=== PATIENT | male | born 1970 | race Hispanic/Latino ===

== ENCOUNTER 2024-01-30 16:02 | Emergency (ER) | payer OTHER ==
[~2024-01-30] VITALS: Ht 165.1 cm; Wt 70.3 kg
[2024-01-30] MEDS: SOLU-MEDROL 125MG VIAL IVP ONE (16:20)
[2024-01-30] MEDS: PREDNISOLONE 15 MG/5 ML SOLN PO STA (16:20)
[2024-01-30 16:42] LABS: BASOPHILS # (AUTO) 0.04 K/uL (0.00-0.20); BASOPHILS % (AUTO) 0.2 % (0.0-5.0); EOSINOPHILS # (AUTO) 0.05 K/uL (0.00-0.70); EOSINOPHILS % (AUTO) 0.3 % (0.0-8.0); HEMATOCRIT 40.9 % (42-54); IMMATURE GRANULOCYTE ABSOLUTE 0.25 K/uL (0-1); LYMPHOCYTES # (AUTO) 2.2 K/uL (1.0-4.8); LYMPHOCYTES % (AUTO) 11.5 % (21.0-51.0); MEAN CORPUSCULAR HEMOGLOBIN 31.9 pg (27.0-33.0); MEAN CORPUSCULAR HGB CONC 35.5 g/dL (32.0-36.0); MEAN CORPUSCULAR VOLUME 90.1 fL (79-99); MONOCYTES # (AUTO) 1.6 K/uL (0.1-1.0); MONOCYTES % (AUTO) 8.4 % (3.0-13.0); NEUTROPHILS # (AUTO) 15.1 K/uL (1.8-7.7); NEUTROPHILS % (AUTO) 78.3 % (40.0-77.0); PLATELET COUNT (AUTO) 397 K/uL (130-400); RED BLOOD CELL COUNT(AUTO) 4.54 MIL/uL (4.50-6.20); RED CELL DISTRIBUTION WIDTH 12.7 % (11.0-15.5); WHITE BLOOD COUNT (AUTO) 19.2 K/uL (4.8-10.8)
[2024-01-30] MEDS: DEXAMETHASONE SOD PHOSPHATE 4 MG/ML 1ML VIAL IM ONE (16:42)
[2024-01-30] MEDS: DEXAMETHASONE SOD PHOSPHATE 4 MG/ML 1ML VIAL ONE (16:43)
[2024-01-30 16:50] LABS: CREATININE 0.9 mg/dL (0.5-1.3); POTASSIUM 3.9 mmol/L (3.5-5.1)
[2024-01-30 16:55] LABS: ALBUMIN 2.9 g/dL (3.5-5.0); TOTAL PROTEIN, SERUM 8.3 g/dL (6.0-8.3)
[2024-01-30 17:14] LABS: SARS-CoV-2, RNA, NAAT NEGATIVE SARS CoV-2 (NEGATIVE)
[2024-01-30 17:17] LABS: INFLUENZA TYPE A Negative For Type A (NEGATIVE); INFLUENZA TYPE B Negative For Type B (NEGATIVE)
[2024-01-30 17:22] LABS: RAPID GROUP A STREP positive (NEGATIVE)
[2024-01-30 17:56] LABS: INR 1.02 (0.85-1.15)
[2024-01-30 17:57] LABS: PARTIAL THROMBOPLASTIN TIME 31.3 SEC (26.3-35.5)
[2024-01-30] MEDS: CEFTRIAXONE 2GM VIAL IVPB STA (19:23)
[2024-01-30] MEDS: CLINDAMYCIN IVPB 600MG/50ML 50 ML IV SCH (19:23)
[2024-01-30] MEDS: 0.9%NACL 1000ML 1,845 ML IV ONE (19:24)
[2024-01-30 20:56] VITALS: BP 153/81; PULSE 76; RESP 16; O2SAT 97
[2024-01-30] MEDS ORDERED: PRED20TA3 PO (21:05)
[2024-01-30] MEDS ORDERED: AMOX400S5 PO (21:05)
[2024-01-30] MEDS: KETOROLAC 30MG VIAL (30MG/ML) IVP ONE (21:21)
== END 2024-01-30 22:25 | disposition home or self-care (01) ==
LOC: EDH 16:02
DX: J35.2 Hypertrophy of adenoids (principal); J02.0 Streptococcal pharyngitis; D69.6 Thrombocytopenia, unspecified; Z79.899 Other long term (current) drug therapy; Z20.822 Contact with and (suspected) exposure to COVID-19
CPT/HCPCS: 99285; 96365; 70490; 96375; 87635; 82550; 84484; 80053; 85025; 85610; 85730; 87040 ×2; 87880; 87804 ×2; 83605; 36415; 96368; 96372; J1100; J7030; J2930; J0696; J1885; J3490

== ENCOUNTER 2025-08-05 19:25 | Inpatient (IN) | payer SELFPAY ==
[~2025-08-05] VITALS: Ht 165.1 cm; Wt 63.5 kg
[2025-08-05] VITALS (7 sets, daily range): BP systolic 126–194; BP diastolic 64–84; PULSE 72–84; RESP 13–22; TEMP 98.4; O2SAT 95
[~2025-08-05 19:25] MED LIST: AMOX400S5 PO; PRED20TA3 PO
[2025-08-05 19:46] LABS: IMMATURE GRANULOCYTE ABSOLUTE 0.24 K/uL (0-1); NUCLEATED RED BLOOD CELLS 0.0 % (0.0-0.19); PLATELET COUNT (AUTO) 341 K/uL (130-400); RED BLOOD CELL COUNT(AUTO) 5.74 MIL/uL (4.50-6.20); RED CELL DISTRIBUTION WIDTH 12.3 % (11.0-15.5); WHITE BLOOD COUNT (AUTO) 21.2 K/uL (4.8-10.8)
[2025-08-05 19:54] LABS: CREATININE 2.6 mg/dL (0.5-1.3); GLOMERULAR FILTR. RATE CALC 28.0 mL/min (>90); GLUCOSE,RANDOM 220.0 mg/dL (70-105); SODIUM SERUM 133.0 mmol/L (136-145); UREA NITROGEN, BLOOD 19.0 mg/dL (7-18)
[2025-08-05] MEDS: NITROGLYCERIN 0.4 MG SL TAB SL PRN (19:56)
[2025-08-05] MEDS: NITROGLYCERIN 0.4 MG SL TAB SL ONE (19:56)
[2025-08-05] MEDS: ASPIRIN 81MG CHEW TAB PO ONE (19:56)
[2025-08-05] MEDS: ASPIRIN 81MG CHEW TAB ONE (19:56)
[2025-08-05 19:59] LABS: CREATINE KINASE, TOTAL 54.0 U/L (21-232)
[2025-08-05] MEDS ORDERED: PRASUGREL HCL 10 MG TABLET PO SCH (20:00)
[2025-08-05 20:02] LABS: INR 1.01 (0.85-1.15)
[2025-08-05] MEDS ORDERED: IOHEXOL 350 MG/ML 100ML INFUS..BTL IV ONE ×2 (20:06→21:02)
[2025-08-05] MEDS ORDERED: LIDOCAINE HCL 400MG/20ML VIAL ONE (20:06)
[2025-08-05] MEDS ORDERED: VERAPAMIL HCL 2.5 MG/ML VIAL ONE (20:06)
[2025-08-05] MEDS ORDERED: HEParin-NS 1,000 UNIT/500 ML 1,000 ML IV ONE (20:07)
--- NOTE | 2025-08-05 20:08 | ERN ---
ED Note History of Present Illness Stated Complaint: C/O DIZZINESS, N X V, LEFT SIDED CP, SOB Chief Complaint: Chest Pain Time Seen by MD: 19:33 Dictation: A 55-year-old male who presented to the emergency room with complaints of dizziness nausea vomitings and chest pain all starting around 3:00 p.m.. He stated that he has never felt this way any time. The chest pain is precordial and he also reports shortness of breath. He denied any radiation to the left arm or jaw. He ate his lunch around 2 in the afternoon. No headache. No a bdominal pain. He does give a history of diaphoresis. Temperature 97.4 pulse 95 respirations 20 blood pressure 147/79 with a pulse oximetry of 98% on room air Patient has never had any routine health care and does not know is comorbidities. Allergies: Coded Allergies: No Known Drug Allergies (Unverified Allergy, Unknown, 01/30/24) Home Meds Active Scripts Amoxicillin (Amoxicillin) 400 Mg/5 Ml Susp.recon, 12 ML PO BID for 10 Days, #250 ML Prov:SHEN SALAZAR 01/30/24 Prednisone (Prednisone) 20 Mg Tablet, 1 TAB PO AD for 6 Days, #14 TAB 0 Refills TAKE 1 TAB BY MOUTH THREE TIMES PER DAY X3 DAYS, THEN TAKE 1 TAB BY MOUTH TWICE A DAY X2 DAYS, THEN TAKE 1 TAB BY MOUTH ONCE A DAY X1 DAY. Prov:SHEN SALAZAR 01/30/24 Past Medical History Past Medical History: No Pertinent History Surgical History: None Social History: ETOH, Negative, Lives with family RN Note Reviewed/Agreed w/PFSH: Yes Review of System Dictation Constitutional: Negative for fever,chills, and weight loss Eyes: Negative for injury, pain,redness, and discharge ENT: Negative for injury,pain or swelling Cardiovascular: Pauses for chest pain, palpitations, and edema Respiratory: Positive for shortness of breath, denied cough, and wheezing, Abdomen/GI: Negative for abdominal pain, diarrhea, and constipation positive for nausea, vomiting, Back: Negative for injury and pain : Negative for injury, bleeding and discharge MS/Extremity: Negative for injury and deformity Skin: Negative for rash, and discoloration Neuro: Negative for headache, weakness, numbness, tingling, and seizure Psych: Negative for suicide ideation, homicidal ideation, and hallucinations Initial Vital Sign VS Vital Signs Date Time Temp Pulse Resp B/P (MAP) Pulse Ox O2 Delivery O2 Flow Rate FiO2 08/05/25 19:28 97.3 95 20 147/79 98 Room Air 08/05/25 19:42 0 21 Physical Exam Dictation General: awake, alert, NAD Head/Face: Normocephalic, atraumatic Eyes: PERRL, EOMI, vision at baseline right eye conjunctival injection more than left eye ENT: oral cavity clear, TMs clear, no signs of infection Neck: Trachea midline, supple, no nuchal rigidity Cardiovascular: RRR, normal S1/S2, No MRGs, no JVD Respiratory: CTAB, no respiratory distress, No rales or wheezes Abdomen: Soft, non-tender, non-distended, normal bowel sounds, no guarding or rebound. Skin: Warm, dry, normal turgor, no rash MS/Extremity: Pulses equal, no cyanosis, neurovascular intact, FROM Neuro: COAx4, GCS 15, strength 5/5, CN 2-12 intact, normal cerebellar exam, normal gait, Psych: Normal behavior, mood, and affect normal Extremities-trace edema without any palpable cords, Homans sign is negative Results (Laboratory/Radiology) Laboratory/Radiology Laboratory Tests Test 08/05/25 19:40 White Blood Count 21.2 K/uL (4.8-10.8) H Red Blood Count 5.74 MIL/uL (4.50-6.20) Hemoglobin 18.3 g/dL (14.0-18.0) H Hematocrit 52.9 % (42-54) Mean Corpuscular Volume 92.2 fL (79-99) Mean Corpuscular Hemoglobin 31.9 pg (27.0-33.0) Mean Corpuscular Hemoglobin Concent 34.6 g/dL (32.0-36.0) Red Cell Distribution Width 12.3 % (11.0-15.5) Platelet Count 341 K/uL (130-400) Mean Platelet Volume 9.1 fL (7.5-10.5) Immature Granulocyte % (Auto) 1.1 % (0-1) H Neutrophils (%) (Auto) 84.9 % (40.0-77.0) H Lymphocytes (%) (Auto) 6.4 % (21.0-51.0) L Monocytes (%) (Auto) 7.1 % (3.0-13.0) Eosinophils (%) (Auto) 0.1 % (0.0-8.0) Basophils (%) (Auto) 0.4 % (0.0-5.0) Neutrophils # (Auto) 18.0 K/uL (1.8-7.7) H Lymphocytes # (Auto) 1.4 K/uL (1.0-4.8) Monocytes # (Auto) 1.5 K/uL (0.1-1.0) H Eosinophils # (Auto) 0.03 K/uL (0.00-0.70) Basophils # (Auto) 0.08 K/uL (0.00-0.20) Absolute Immature Granulocyte (auto 0.24 K/uL (0-1) Nucleated Red Blood Cells 0.0 % (0.0-0.19) White Cell Morphology Comment See comments Prothrombin Time 10.7 SEC (9.6-11.6) Prothromb Time International Ratio 1.01 (0.85-1.15) Activated Partial Thromboplast Time 23.6 SEC (26.3-35.5) L Sodium Level 133 mmol/L (136-145) L Potassium Level 4.4 mmol/L (3.5-5.1) Chloride Level 96 mmol/L (101-111) L Carbon Dioxide Level 24 mmol/L (21-32) Blood Urea Nitrogen 19 mg/dL (7-18) H Creatinine 2.6 mg/dL (0.5-1.3) H Glomerular Filtration Rate Calc 28 mL/min (>90) Random Glucose 220 mg/dL (70-105) H Total Calcium 10.6 mg/dL (8.5-10.1) H Total Creatine Kinase 54 U/L (21-232) # Troponin I High Sensitivity 50 ng/L (4-75) Labs Reviewed?: Yes EKG Comment: Twelve lead EKG done on 08/05/2025 at 7:30 p.m. shows a heart rate of 86, FL interval 172, QRS 97, QT/QTC 370/444. Impression normal sinus rhythm with a acute ST-T elevations in the anterolateral leads. ST segment elevation is also noted in the inferior leads with Q-waves in the lead 3 and small Q-waves in the AVF. EKG rhythm strip shows ST-T elevations and sinus rhythm. Interpreted by ER MD Dr. Avendaño X-RAY Comment: REASON: CHEST PAIN ORDERING PHYSICIAN: LINH AVENDAÑO MD PROCEDURE: CXR1VW - CHEST 1VW EXAM: CR Chest, single view. CLINICAL HISTORY: Chest pain. COMPARISON: None. FINDINGS: The lungs show no infiltrate or other acute findings. No pleural effusion or pneumothorax. The cardiomediastinal silhouette is within normal limits. No acute osseous abnormality. IMPRESSION: No acute cardiopulmonary pathology is evident. /[place] DICTATED BY: MARSHAL ARRIETA Jr., MD DATE: 08/05/252228 ELECTRONICALLY SIGNED BY: MARSHAL ARRIETA Jr., MD DATE: 08/05/252228 ED Course ED Course Orders Procedure Category Date Status Time Vital Signs Per CPOE 08/05/25 Transmitted Routine 19:37 Chest 1vw RAD 08/05/25 Resulted 19:37 12 Lead Ekg Tracing- EKG 08/05/25 Complete Technical 19:37 Oxygen By Nc/Pulse Ox CPOE 08/05/25 Transmitted 19:37 Maintain Iv CPOE 08/05/25 Transmitted 19:37 Iv Insertion CPOE 08/05/25 Transmitted 19:37 Cardiac Monitoring CPOE 08/05/25 Transmitted 19:37 Pulse Oximetry With CPOE 08/05/25 Transmitted Vs And Prn 19:37 Cbc With Differential LAB 08/05/25 Complete 19:37 Activity: Br W/Brp CPOE 08/05/25 Transmitted With Assist 19:37 Creatine Kinase, Total LAB 08/05/25 Complete 19:37 Troponin I High LAB 08/05/25 Complete Sensitivity 19:37 Urinalysis Profile LAB 08/05/25 Logged 19:37 Basic Metabolic Panel LAB 08/05/25 Complete 19:37 Nitroglycerin 0.4mg PHA 08/05/25 Complete Sl Tab (Nitrostat) 19:39 Aspirin 81mg Chew Tab PHA 08/05/25 Complete (Aspirin 81mg Chew 19:39 Prasugrel 10mg PHA 08/05/25 Complete (Effient 10mg) 20:00 Nitroglycerin 0.4mg PHA 08/05/25 In Process Sl Tab (Nitrostat) 20:00 Aspirin 81mg Chew Tab PHA 08/05/25 Complete (Aspirin 81mg Chew 20:00 Lace Burn Out Tender Procedure CATH 08/05/25 In Process Request Ticagrelor (Brilinta) PHA 08/05/25 Complete 20:00 Initiate Heparin TYLOR 08/05/25 In Process Treatment Pro 19:45 Heparin 5,000 Unit PHA 08/05/25 In Process Vial (Heparin 5,000 U 20:30 Heparin 25,000 PHA 08/05/25 In Process Units/250ml D5w 20:30 Heparin Protocol CPOE 08/05/25 Transmitted Monitoring 19:45 Pt And Ptt LAB 08/05/25 Complete 19:47 Type And Screen BBK 08/05/25 Complete 19:57 Lidocaine Hcl PHA 08/05/25 Complete 400mg/20ml (Lidocaine 20:06 Iohexol (Omnipaque) PHA 08/05/25 Complete 20:06 Verapamil Hcl PHA 08/05/25 Complete (Calan/Isoptin) 20:06 Heparin 10,000 PHA 08/05/25 Complete Unit/10ml (Heparin 20:07 Heparin-Ns 1,000 PHA 08/05/25 Complete Unit/500 Ml 20:07 Nitroglycerin 50mg PHA 08/05/25 Complete Vial (Tridil 50mg/10m 20:14 Fentanyl Citrate Pf PHA 08/05/25 Complete 0.05 Mg/Ml (Fentanyl 20:22 Midazolam Hcl (Versed) PHA 08/05/25 Complete 20:22 Eptifibatide PHA 08/05/25 Complete 75mg/100ml Bottle 20:31 Eptifibatide PHA 08/05/25 Complete (Integrilin) 20:31 Eptifibatide PHA 08/05/25 Complete (Integrilin) 20:44 Nicardipine 25mg Inj PHA 08/05/25 Complete (Cardene 25mg Inj) 20:52 Heparin-Ns 1,000 PHA 08/05/25 Complete Unit/500 Ml 20:54 Iohexol (Omnipaque) PHA 08/05/25 Complete 21:02 Activities Post Cath CPOE 08/05/25 Transmitted 21:19 Lace Burn Out Tender Vital Signs CPOE 08/05/25 Transmitted 21:19 Intake/Output Lace Burn Out Tender CPOE 08/05/25 Transmitted 21:19 Physician CPOE 08/05/25 Transmitted Notification Cathlab 21:19 Eptifibatide PHA 08/05/25 Pending 75mg/100ml Bottle 21:30 0.9%Nacl 1000ml (Ns PHA 08/05/25 In Process 1000ml) 21:30 Heart Healthy Diet DIET 08/06/25 Transmitted Breakfast Admit Orders ADM 08/05/25 Transmitted 21:19 Amlodipine 5 Mg Tab PHA 08/06/25 In Process (Norvasc 5mg Tab) 09:00 Aspirin 81mg Chew Tab PHA 08/06/25 In Process (Aspirin 81mg Chew 09:00 Ticagrelor (Brilinta) PHA 08/06/25 Pending 09:00 Initiate Hypoglycemia TYLOR 08/05/25 In Process Protocol 21:19 Dextrose 50%-Water PHA 08/05/25 In Process (D50w) 21:30 Glucagon 1mg Kit PHA 08/05/25 In Process (Glucagon 1mg Kit) 21:30 Initiate TYLOR 08/05/25 In Process Hyperglycemia Protoco 21:19 Radial Band CPOE 08/05/25 Transmitted Remvl-Intervention 21:19 Vital Signs Date Time Temp Pulse Resp B/P (MAP) Pulse Ox O2 Delivery O2 Flow Rate FiO2 08/05/25 19:42 98.1 94 18 145/88 97 Room Air* 0 21 08/05/25 19:28 97.3 95 20 147/79 98 Room Air We will perform diagnostic labs, advanced imaging and administer medications according to the patient's complaint. Once the results are available, will review and personally interpreted the labs to rule out any acute life- threatening emergency the trach require immediate intervention and treatment. I will then re-evaluate the patient after treatment and diagnostic exams have return to determine whether the patient requires any further testing, can safely be discharged home or need further admission to hospital for additional treatment and evaluation. Once patient goes to the supervisor labor gang, after procedure we will be directly admitted to the intensive care unit. supervisor sawmill to coordinate the admission to the team HEART Score Response (Comments) Value History: High suspicion (+2) 2 EKG: Significant ST depression 2 Age: 45-65yrs (+1) 1 Risk Factors: No known risk factors (0) 0 Initial Troponin: 1-3x Normal Limit (+1) 1 HEART Score Risk: High Risk for MACE (7-10) Total 6 Medical Decision Making MDM Differential diagnosis: Acute STEMI, takotsubo, pericarditis, non-STEMI, GI pathology, coronary spasm A 55-year-old male who presented to the emergency room with complaints of dizziness nausea vomitings and chest pain all starting around 3:00 p.m.. He stated that he has never felt this way any time. The chest pain is precordial and he also reports shortness of breath. He denied any radiation to the left arm or jaw. He ate his lunch around 2 in the afternoon. No headache. No abdominal pain. He does give diaphoresis. Temperature 97.4 pulse 95 respirations 20 blood pressure 147/79 with a pulse oximetry of 98% on room air Patient has never had any routine health care and does not know is comorbidit ies. Twelve lead EKG done on 08/05/2025 at 7:[address]-T elevations in the anterolateral leads with a small inferior cues and SD elevations also in inferior leads reciprocal changes. Acute STEMI alert activated Patient already received aspirin 324 mg, nitro sublingual 0.4. 7:[address] Rogelio hayes and shared the EKG. He concurs and indicat ed to me that he is on his way. labor and delivery registered nurse has already been activated Patient also received Brilinta 180 mg. Heparin drip initiated. Patient to go to supervisor labor gang soon 8:00 p.m. labs reviewed CBC shows a white count of 21.2 hemoglobin 18.3 platelets 341. BNP 7 is significant for a sodium of 133 chloride 96 BUN and creatinine are 19 and 2.6 with a glucose of 227. LFTs are also abnormal. Troponins pending Rationale: Tests considered and ordered secondary to shared decision making include: labs, ECG and radiology Previous outside records reviewed: Old ER visits. Risk of complication and/or morbidity or mortality of patient management: None Medications-Per medication reconciliation Need for hospitalization: Patient does meet criteria for hospitalization. Need for emergency major/minor surgery: No There are no social concerns with this patient. Prescription drug management Prescriptions will include symptomatic care Patient's prior external medical records from other ER visits were reviewed by me as indicated. Prior testing and results from previous visits were reviewed. Prior tests were taken into account with medical decision making and resource utilization, independent historian/historians were used to obtain complete medical history. I independently interpreted the test that were performed, results were reviewed by me and considered findings on radiology if ordered. Medical management and examination interpretation discussions were had by me with other qualified healthcare professionals as indicated for the patient's care. Problem List Problem List: (1) Acute ST elevation myocardial infarction (STEMI) (2) Leukocytosis (3) Nausea & vomiting (4) Acute kidney injury (5) Hyperglycemia Critical Care Note Comment(s) Life-threatening illness; acute STEMI, leukocytosis, acute kidney injury Risk of morbidity mortality-high Complexity of medical decision making-high (X) high probability of sudden clinically significant deterioration in the patient's condition required the highest level of my preparedness to intervene urgently. I provided critical care services requiring my direct and personal management as noted below; (x) chart data review (x) reviewing nurse's notes and/charts (x) documentation time (x) consultation collaboration on findings and therapy options (x) medication orders and management (x) re-evaluations (x) care, transfer of care, and discharge plans (x) ordering and interpreting studies (x) ordering and reviewing labs (x) obtaining necessary history from family, EMS, skilled nursing, private MD, surrogate decision makers because patient was unable to give history due to limitations in the mental status (x) aggregate critical care time was ( 40 ) minutes. This includes only time during which I was engaged in work directly related to the patient's care as described above whether at the bedside or elsewhere in the ER while the patient was critical. My time did not include minutes spent treating any other patients simultaneously or on activities that did not directly contribute to the patient's treatment. It did not include time spent performing other reported procedures or services of residents if any. Linh NEWCP DX & DISP Disposition: Inpatient Departure Impression: Primary Impression: Acute ST elevation myocardial infarction (STEMI) Additional Impressions: Leukocytosis, Nausea & vomiting, Acute kidney injury, Hyperglycemia Condition: Stable Additional Instructions: Patient was informed of all the diagnostic labs and procedures conducted in the emergency room today and demonstrated understanding of the results. I personally reviewed and interpreted all the diagnostic exams performed in the ER today. The patient will be admitted to the hospital for further treatment and evaluation. Disposition-admit to facility Condition-stable/guarded Course-uncertain at this time Pain status-decreased Assessment-exam unchanged Admission Certification- I certify that the patients status is appropriate and is based on my best clinical judgment and the patient's condition as documented in the medical records Referrals: SELF,REFERRAL (PCP) LINH AVENDAÑO MD Aug 05, 2025 20:08
--- NOTE | 2025-08-05 20:11 | NUR ---
lab rn team here. Dr Oliveira at bedside
[2025-08-05] MEDS ORDERED: NITROGLYCERIN 50MG VIAL ONE (20:14)
--- NOTE | 2025-08-05 20:14 | EKG ---
[facility] Test Date: 2025-08-05 Test Time: 19:30:43 Pat Name: DO LUNA Department: [facility] Room: 216 Gender: M Log Rafter: [id number] : 1970 Requested By: REX CASANOVA Order Number: [id number] Reading MD: Sophie Reina Measurements Intervals [place] Rate: 86 P: 65 VT: 172 QRS: 70 QRSD: 97 T: 60 QT: 370 QTc: 444 Interpretive Statements Sinus rhythm Anterolateral infarct, acute No previous ECG available for comparison Electronically Signed On 08-07-2025 08:37:30 CDT by Sophie Reina Please click the below link to view image of tracing.
--- NOTE | 2025-08-05 20:14 | NUR ---
PATIENT TAKEN TO AEROBICS INSTRUCTOR
[2025-08-05] MEDS ORDERED: MIDAZOLAM HCL 1 MG/ML 2ML VIAL ONE (20:22)
--- NOTE | 2025-08-05 20:25 | CONS ---
[facility] CARDIOLOGY CONSULTATION NOTE Date Patient Seen: Aug 05, 2025 Time of Visit: 20:19 Reason for Consultation: [ Acute STEMI] History of Present Illness: [ 55-year-old male with a past medical history of drug abuse, hypertension, hyperlipidemia who presented to [facility] endorsing acute onset of epigastric burning radiating to his left chest accompanied by na usea and vomiting. Patient stated his symptoms subsided after nausea vomiting and initiated around noon today. Patient states upon arrival to his house he began endorsing left-sided chest pressure radiating to his left arm accompanied by nausea and vomiting. Given his progressive symptoms he presented to [facility] where he was given sublingual nitro with improvement of his symptoms. His presenting ECG revealed inferior and anterolateral ST elevations and code STEMI was activated. Patient was started on ACS protocol including loading doses of Brilinta, IV heparin bolus and infusion, high-intensity statin therapy and was transferred to laboratory phlebotomist for urgent coronary angiogram with possible PCI. On evaluation in the ER patient was hemodynamically stable in no acute distress denying any further symptoms. There were no telemetry events and following informed consent the patient was taken to the laboratory phlebotomist. Family is present at bedside and all risk benefits were explained in great detail. Patient verbalized understanding and agreeable with plan of care] Past Medical History: [Refer to HPI ] Past Surgical History: [ Refer to chart] Family History: [Noncontributory ] Social History: [ Refer to chart] Habits: [Never] smoker. [Occasional] alcohol consumption. [Cocaine] illicit drug use Review of Systems: Review of 12 point systems is negative except per HPI Physical Examination: GENERAL: [No acute distress.] HEAD: [Normal with no signs of head trauma.] EYES: [PERRLA, EOMI, conjunctiva and sclera normal.] ENT: [Hearing grossly intact, normal oropharynx.] NECK: [Supple without JVD. There is no tenderness, lymphadenopathy, or masses. No thyromegaly. Normal carotid upstrokes without bruits.] LUNGS: [Clear breath sounds bilaterally. . No wheezes, or rhonchi.] HEART: [Normal rate and rhythm. Normal S1 and S2 without mumurs, gallop or rub.] VASC: [Peripheral pulses +2 bilaterally.] ABD: [Bowel sounds normal, soft, nontender, no masses, no organomegaly. No audible bruits.] : [Not examined] LYMPH: [No lymphadenopathy noted.] EXT: [No clubbing, cyanosis or edema.] SKIN: [No rashes or lesions noted.] NEURO: [Awake, alert, and oriented x3. No focal sensory or strength deficits noted.] Vital Signs (last 8hr) Date Time Temp Pulse Resp B/P (MAP) Pulse Ox O2 Delivery O2 Flow Rate FiO2 08/05/25 19:42 98.1 94 18 145/88 97 Room Air* 0 21 08/05/25 19:28 97.3 95 20 147/79 98 Room Air Laboratory: [ ] Hematology Labs: Test 08/05/25 19:40 Range/Units White Blood Count 21.2 H 4.8-10.8 K/uL Red Blood Count 5.74 4.50-6.20 MIL/uL Hemoglobin 18.3 H 14.0-18.0 g/dL Hematocrit 52.9 42-54 % Mean Corpuscular Volume 92.2 79-99 fL Mean Corpuscular Hemoglobin 31.9 27.0-33.0 pg Mean Corpuscular Hemoglobin Concent 34.6 32.0-36.0 g/dL Red Cell Distribution Width 12.3 11.0-15.5 % Platelet Count 341 130-400 K/uL Mean Platelet Volume 9.1 7.5-10.5 fL Immature Granulocyte % (Auto) 1.1 H 0-1 % Neutrophils (%) (Auto) 84.9 H 40.0-77.0 % Lymphocytes (%) (Auto) 6.4 L 21.0-51.0 % Monocytes (%) (Auto) 7.1 3.0-13.0 % Eosinophils (%) (Auto) 0.1 0.0-8.0 % Basophils (%) (Auto) 0.4 0.0-5.0 % Neutrophils # (Auto) 18.0 H 1.8-7.7 K/uL Lymphocytes # (Auto) 1.4 1.0-4.8 K/uL Monocytes # (Auto) 1.5 H 0.1-1.0 K/uL Eosinophils # (Auto) 0.03 0.00-0.70 K/uL Basophils # (Auto) 0.08 0.00-0.20 K/uL Absolute Immature Granulocyte (auto 0.24 0-1 K/uL Nucleated Red Blood Cells 0.0 0.0-0.19 % White Cell Morphology Comment See comments Chemistry Labs: Test 08/05/25 19:40 Range/Units Sodium Level 133 L 136-145 mmol/L Potassium Level 4.4 3.5-5.1 mmol/L Chloride Level 96 L 101-111 mmol/L Carbon Dioxide Level 24 21-32 mmol/L Blood Urea Nitrogen 19 H 7-18 mg/dL Creatinine 2.6 H 0.5-1.3 mg/dL Glomerular Filtration Rate Calc 28 >90 mL/min Random Glucose 220 H 70-105 mg/dL Total Calcium 10.6 H 8.5-10.1 mg/dL Total Creatine Kinase 54 # 21-232 U/L Troponin I High Sensitivity 50 4-75 ng/L Coagulation Labs: Test 08/05/25 19:40 Range/Units Prothrombin Time 10.7 9.6-11.6 SEC Prothromb Time International Ratio 1.01 0.85-1.15 Activated Partial Thromboplast Time 23.6 L 26.3-35.5 SEC Diagnostics / Radiology: [Copy/Paste Echos/Imaging Report here] Assessment: [Acute STEMI Hypertension Hyperlipidemia History of drug abuse ] Plan: [# Acute STEMI: Patient presenting with epigastric burning associated with nausea and vomiting while at work which initiated around 12:00 p.m. today Following emesis his symptoms resolve later that afternoon he began endorsing left-sided radiating chest pressure He presented to [facility] worse presenting ECG revealed inferior and anterolateral ST elevations Patient was given IV heparin bolus and infusion along with Brilinta 180 mg, aspirin 324, and Lipitor 40 mg q.h.s. On evaluation the bedside patient was hemodynamically stable stating his symptoms had resolved Following informed consent patient was taken to the laboratory phlebotomist emergently for coronary angiogram with possible PCI Please order formal 2D echocardiogram to assess systolic and valvular function The patient required 12 months of dual antiplatelet therapy in addition to high- intensity statin therapy and beta-maricarmen Please keep patient on telemetry. Monitor/replace electrolytes as needed Former recommendations pending 2D echocardiogram and coronary angiogram ] Thank you for this consult. Cardiology continued to follow along PIPER GODINEZ MD Aug 05, 2025 20:25
[2025-08-05] MEDS ORDERED: EPTIFIBATIDE 75MG/100ML BOTTLE 100 ML IV ONE (20:31)
[2025-08-05] MEDS ORDERED: EPTIFIBATIDE 2 MG/ML 10 ML VIAL IVP ONE ×2 (20:31→20:44)
[2025-08-05] MEDS ORDERED: HEParin-NS 1,000 UNIT/500 ML 500 ML IV ONE (20:54)
[2025-08-05] MEDS ORDERED: DEXTROSE 50%-WATER 50 ML DISP.SYRIN IV PRN (21:30)
[2025-08-05] MEDS: 0.9%NACL 1000ML 1,000 ML IV SCH (21:30)
[2025-08-05] MEDS ORDERED: GLUCAGON 1MG KIT 1 MG ML IM PRN (21:30)
--- NOTE | 2025-08-05 21:30 | HMCIMG ---
EXAM: CR Chest, single view. CLINICAL HISTORY: Chest pain. COMPARISON: None. FINDINGS: The lungs show no infiltrate or other acute findings. No pleural effusion or pneumothorax. The cardiomediastinal silhouette is within normal limits. No acute osseous abnormality. IMPRESSION: No acute cardiopulmonary pathology is evident. /[place]
--- NOTE | 2025-08-05 21:38 | PRN ---
PROCEDURE REPORT DATE OF PROCEDURE: Aug 05, 2025 SAILING MASTER: [ Piper hayes MD] PROCEDURE PERFORMED: Conscious sedation Ultrasound guided right radial artery access Selective left coronary artery angiogram Selective right coronary artery angiogram Left heart catheterization IVUS of the LAD and left main Status post successful IVUS guided aspiration thrombectomy of the distal LAD (penumbra catheter) with removal of thrombus burden TR band 13 fawn over right radial artery INDICATION: Abnormal stress test DESCRIPTION OF PROCEDURE: After informed consent was obtained, the patient was prepped and draped in the usual sterile fashion. A 6 Bengali arterial sheath was inserted in the right radial artery using ultrasound guidance with first pass wall puncture. The arterial sheath was aspirated and flushed. A 6 Bengali JL 3.5 was then advanced to the ascending aorta over an exchange length J-tip guidewire, was aspirated and flushed, and was used for selective coronary angiograms in multiple obliquities. A JR-4 was advanced in a similar fashion to the ascending aorta over the J-tipped guidewire and was used for selective right coronary angiograms in multiple oblique views with findings as outlined below. The JR-4 catheter advanced into the LV and pressures were obtained with a pull-back across the aortic valve. Following review of the angiographic images decision was made to intervene on patient's distal thrombotic stenosis. [place] [address] units of IV heparin loading doses of ticagrelor along with IV heparin infusion. Given his significant thrombotic burden we initiated double bolus and infusion of Integrilin. We then advanced a six Bengali XB three guide catheter over the wire which was used to select engage the left main coronary artery. We then advanced a Prowater down to the distal LAD and this was used to daughter the distal apical thrombotic burden. Given the distal thrombotic burden we proceeded with aspiration thrombectomy rather than DATA SUPPORT SPECIALIST to prevent further embo lization, moreover there appeared to be 30-40% thrombotic plaque in the ostial LAD. We advanced a penumbra catheter over the wire and became several antegrade and retrograde passes with removal of significant clot burden the distal and apical LAD as well as ostial LAD. We performed IVUS imaging to further delineate lesion morphology and characteristics. We noted distal thrombotic burden and a 30-40% thrombotic plaque in the ostial LAD. At this time we noted improvement of his ST elevations we provided a total of 400 mcg of nicardipine intracoronary along with a bolus of Integrilin intracoronary. Following review of the final angiographic images and improvement of ST-elevation decision was made to terminate the procedure and provide IV Integrilin infusion over the next 16-18 hours. At this time all wires and catheters removed from the body and a A TR band was placed over right radial artery. Patient tolerated procedure well with no postprocedural complication was transferred to CCU in stable condition FLUOROSCOPY TIME: 9.8 min LEFT HEART HEMODYNAMICS: LVEDP 3 mm Hg and no gradient Ao CORONARY ANGIOGRAM: LEFT MAIN: Patent and 0% stenosis. Gives rise to LCx and LAD. LEFT ANTERIOR DESCENDING: Large vessel giving rise to two Diagonal branches. There is 30-40% ostial thombotic plaque (by IVUS) and 100% distal-apical thrombotic occlusion. Diagonal patent LEFT CIRCUMFLEX: Large and gives rise to two OM branches. Luminal irregularities RIGHT CORONARY ARTERY: Large, dominant vessel giving rise to PDA and PL branches. Luminal irregularities HEMOSTASIS: TR band 12 fawn over right radial artery INTERVENTIONS: Status post successful IVUS guided aspiration thrombectomy of the distal LAD (penumbra catheter) with removal of thrombus burden COMPLICATIONS: None FINDINGS: Normal coronary anatomy and 100% distal thrombotic occlusion of the LAD status post successful aspiration thrombectomy ESTIMATED BLOOD LOSS: 5 cc RECOMMENDATIONS/INSTRUCTIONS: Aggressive risk factor modification. Patient required 12 months of dual antiplatelet therapy (aspirin 81 mg daily/ticagrelor 90 mg b.i.d.) in addition to high-intensity statin therapy We will defer the use of beta-blockers given recent cocaine use in initiate calcium channel blockers Please perform 2D echocardiogram to assess systolic and valvular function Radial arm precautions and postprocedural IV resuscitation with fluids We will continue IV Integrilin infusion at a constant rate for the next 16-18 hours CONTRAST DELIVERED TO PATIENT (mL): 200cc PIPER Gilbert MD, MD Aug 05, 2025 21:38
--- NOTE | 2025-08-05 22:31 | HP ---
History of Present Illness Reason for Visit: chest pain History of Present Illness Mr. Valdes is a 65-year-old male that was seen and examined today on 08/05/2025. Patient is a good historian of personal health. Patient's , Melba Valdes is at bedside 55-year-old male with a past medical history of drug abuse, hypertension, hyperlipidemia who presented to [facility] endorsing acute onset of epigastric burning radiating to his left chest accompanied by nausea and vomiting. Patient stated his symptoms subsided after nausea vomiting and initiated around noon today. Patient states upon arrival to his house he began endorsing left-sided chest pressure radiating to his left arm accompanied by nausea and vomiting. Given his progressive symptoms he presented to [facility] ER where he was given sublingual nitro with improvement of his symptoms. His presenting ECG revealed inferior and anterolateral ST elevations and code STEMI was activated. Patient was started on ACS protocol including loading doses of Brilinta, IV heparin bolus and infusion, high-intensity statin therapy and was transferred to laboratory machinist for urgent coronary angiogram with possible PCI. On evaluation in the ER patient was hemodynamically stable in no acute distress denying any further symptoms. There were no telemetry events and following informed consent the patient was taken to the laboratory machinist. Family is present at bedside and all risk benefits were explained in great detail. Patient verbalized understanding and agreeable with plan of care] Past Medical History Patient History: Asthma FATHER Carcinomas FATHER, Onset:40's - 50 Cardiovascular disease MOTHER, Onset:50's - 60 ADDITIONAL PAST MEDICAL HISTORY: [Denies, vision problems left eye] SOCIAL HISTORY: [Negative for smoking. Patient drinks one beer that is 24 oz each every other day. Patient denies drug use. 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 Patient is typically independent of all his ADLs. Patient denies difficulty pain is bills.] SURGICAL HISTORY: [Denies] Review of Systems General: No Fever, No Chills, No Night Sweats, No Fatigue, No Malaise, No Appetite, No Other HEENT: No Head Aches, No Visual Changes, No Eye Pain, No Ear Pain, No Dysphasia, No Sinus Congestion, No Post Nasal Drip, No Sore Throat, No Other Pulmonary: No Dyspnea, No Cough, No Pleuritic Chest Pain, No Other Cardiovascular: Chest Pain; No: Palpitations, Orthopnea, Paroxysmal Noc. Dyspnea, Edema, Lt Headedness, Other Gastrointestinal: No: Nausea, Vomiting, Abdominal Pain, Diarrhea, Constipation, Melena, Hematochezia, Other Genitourinary: No Dysuria, No Frequency, No Incontinence, No Hematuria, No Retention, No Other Musculoskeletal: No: other, neck pain, shoulder pain, arm pain, back pain, hand pain, leg pain, foot pain Skin: No Urticaria, No Rash, No Other Neurological: No: Weakness, Numbness, Incoordination, Change in speech, Confusion, Seizures, Other Allergies: Coded Allergies: No Known Drug Allergies (Unverified Allergy, Unknown, 01/30/24) Scheduled Amoxicillin (Amoxicillin), 12 ML PO BID Prednisone (Prednisone), 1 TAB PO AD Exam Vital Signs Vital Signs Date Time Temp Pulse Resp B/P (MAP) Pulse Ox O2 Delivery O2 Flow Rate FiO2 08/05/25 19:42 98.1 94 18 145/88 97 Room Air* 0 21 General Appearance: Alert, Oriented X3, Cooperative, moderate distress HEENT: Atraumatic, EOMI Respiratory: Clear to auscultation, Normal air movement, NL respiratory effort Cardiovascular: Normal S1, Normal S2, Other Abdominal: Normal bowel sounds, Soft, No tenderness Extremities: No edema Skin: No significant lesion Neuro: Normal speech, Strength at 5/5 X4 ext, Sensation intact, Cranial nerves 3-12 NL Psych/Mental Status: Mental status NL, Mood NL, Thoughts/Content NL Assessment/Plan ASSESSMENT: [ STEMI, POA Status post successful IVUS guided aspiration thrombectomy of the distal LAD (penumbra catheter) with the removal of thrombus burden, on 08/05/25 PLAN: [ Admit patient to ICU as inpatient status. Place patient on telemetry monitoring. Patient is being followed by cardiology service, Dr. Rogelio hayes Status post successful IVUS guided aspiration thrombectomy of the distal LAD (penumbra catheter) with the removal of thrombus burden. Patient is status post left coronary artery angiogram, right coronary artery angiogram, left heart catheterization, IVUS of the LAD and left main. Heart healthy diet heparin drip has been discontinued NS at 100 mL/HR Amlodipine 5 mg daily Patient received aspirin 324 mg by mouth times 1 Aspirin 81 mg by mouth daily Nitroglycerin sublingual 0.4 mg as needed for chest pain every 5 minutes, max 3 doses, hold for systolic blood pressure less than 100 mmHg. Patient received ticagrelor 180 mg by mouth times 1 Continue ticagrelor 90 mg by mouth twice daily Supplemental oxygen to maintain O2 saturation greater 92%. GI prophylaxis, famotidine DVT prophylaxis, Devin's and SCDs anticoagulation per Cardiology Service ADVANCED CARE PLANNING 1. Which of the following were discussed? Hospice Care - Yes Therapeutic options - yes Advance Directives - Yes - patient states he does not have any advance directives in place at this time, however his , Melba can make decisions for him if he becomes unable. Other discussions - patient wishes to remain a full code at this time 2. Discussed with who? Patient 3. Voluntary nature of this service was explained to the patient? Yes 4. Amount of time spent - ___16 minutes____ 5. Reviewed by Physician? (if this service was performed by NPP) Yes This document was generated in part using voice recognition software, occasional wrong word or sound alike substitutions may have occurred due to the inherent limitations of voice recognition software. Read the chart carefully and recognize using context, where the substitutions have occurred. Although every effort was made to edit the content, informatics application analyst and typing errors may occur ATTESTATION BY PHYSICIAN I have seen and examined the patient. I reviewed the documentation, medical decision making, and treatment plan as noted by the mid-level provider above. I agree with the findings and plan of care. JUNI POLANCO [facility] Aug 05, 2025 22:31
[2025-08-05 23:00] LABS: INFLUENZA TYPE A Negative For Type A (NEGATIVE); INFLUENZA TYPE B Negative For Type B (NEGATIVE)
[2025-08-06] VITALS (42 sets, daily range): BP systolic 113–159; BP diastolic 59–98; PULSE 63–84; RESP 6–73; TEMP 97.8–98.7; O2SAT 95–98
[2025-08-06] MEDS ORDERED: MAGNESIUM 2GM PREMIX 50ML 50 ML IV PRN
[2025-08-06] MEDS ORDERED: PoTASSium chl 10% ELIXIR 20MEQ 20 MEQ/15 ML UDCUP PO PRN
[2025-08-06 05:20] LABS: IMMATURE GRANULOCYTE ABSOLUTE 0.10 K/uL (0-1); NUCLEATED RED BLOOD CELLS 0.0 % (0.0-0.19); PLATELET COUNT (AUTO) 298 K/uL (130-400); RED BLOOD CELL COUNT(AUTO) 4.80 MIL/uL (4.50-6.20); RED CELL DISTRIBUTION WIDTH 12.5 % (11.0-15.5); WHITE BLOOD COUNT (AUTO) 14.7 K/uL (4.8-10.8)
[2025-08-06 05:49] LABS: CREATININE 1.7 mg/dL (0.5-1.3); GLOMERULAR FILTR. RATE CALC 46.0 mL/min (>90); GLUCOSE,RANDOM 126.0 mg/dL (70-105); PHOSPHORUS 5.6 mg/dL (2.5-4.9); SODIUM SERUM 134.0 mmol/L (136-145); UREA NITROGEN, BLOOD 28.0 mg/dL (7-18)
[2025-08-06] MEDS: EPTIFIBATIDE 75MG/100ML BOTTLE 100 ML IV SCH (05:57)
[2025-08-06] MEDS: amLODIPine 5 MG TAB PO SCH (08:07)
[2025-08-06] MEDS: FAMOTIDINE 20MG TAB PO SCH (08:07)
[2025-08-06] MEDS: ASPIRIN 81MG CHEW TAB PO SCH (08:07)
[2025-08-06 08:47] LABS: LDL DIRECT 95 mg/dL (0-99)
--- NOTE | 2025-08-06 09:27 | EKG ---
[facility] Test Date: 2025-08-06 Test Time: 07:58:23 Pat Name: DO LUNA Department: [facility] Room: 216 1 Gender: M Director Trust: NHUNG : 1970 Requested By: PIPER GODINEZ Order Number: [id number] Reading MD: Sophie Reina Measurements Intervals Conrad Rate: 64 P: 67 NJ: 182 QRS: 15 QRSD: 92 T: 44 QT: 430 QTc: 443 Interpretive Statements Normal sinus rhythm Nonspecific ST and T wave abnormality Compared to ECG 08/05/2025 19:30:43 ST (T wave) deviation now present Myocardial infarct finding no longer present Electronically Signed On 08-07-2025 08:31:38 CDT by Sophie Reina Please click the below link to view image of tracing.
--- NOTE | 2025-08-06 10:23 | PN ---
[facility] PROGRESS NOTE Date of Service: Aug 06, 2025 Time of Service: 10:21 SUBJECTIVE: Patient is 55-year-old male with a past medical history of drug abuse, hypertension, hyperlipidemia who presented to [facility] endorsing acute onset of epigastric burning radiating to his left chest accompanied by nausea and vomiting. Patient stated his symptoms subsided after nausea vomiting and initiated around noon today. Patient states upon arrival to his house he began endorsing left-sided chest pressure radiating to his left arm accompanied by nausea and vomiting. Given his progressive symptoms he presented to [facility] ER where he was given sublingual nitro with improvement of his symptoms. His presenting ECG revealed inferior and anterolateral ST elevations and code STEMI was activated. Patient was started on ACS protocol including loading doses of Brilinta, IV heparin bolus and infusion, high-intensity statin therapy and was transferred to helper animal laboratory for urgent coronary angiogram with possible PCI. On evaluation in the ER patient was hemodynamically stable in no acute distress denying any further symptoms. There were no telemetry events and following informed consent the patient was taken to the helper animal laboratory. Family is present at bedside and all risk benefits were explained in great detail. Patient verbalized understanding and agreeable with plan of care. 08/06/25: REVIEW OF SYSTEMS CONSTITUTIONAL: Denies fevers, chills, or night sweats. No unintentional weight loss reported. NEUROLOGICAL: Denies headache, amaurosis fugax, motor weakness, sensory deficit, vertigo/spinning sensation, gait abnormalities, or tremors. ENT: No hearing loss, otalgia, otorrhea, rhinitis, rhinorrhea, hoarseness, or sore throat. CARDIOVASCULAR: Denies any exertional angina, dyspnea on exertion, orthopnea, paroxysmal nocturnal dyspnea, palpitations, life-threatening arrhythmias, claudication. PULMONARY: Denies any shortness of breath, cough, phlegm/sputum, hemoptysis, pleuritic chest pain. SLEEP: Denies morning headaches, daytime somnolence or napping. Denies difficulty falling asleep, staying asleep, waking from sleep. Denies knowledge of snoring. GASTROINTESTINAL: Denies any type of dysphagia to either liquids or solids. Denies nausea, vomiting, pyrosis, early satiety, abdominal pain, diarrhea, constipation, or changes in stool consistency or caliber. Denies coffee-ground emesis, hematemesis, hematochezia, or melanotic stools. GENITOURINARY: Denies frequency, urgency, nocturia, hematuria or incontinence (Storage/Irritative symptoms.) Low urinary stream, straining to void, urinary intermittency or hesitancy, splitting of the voiding stream, terminal dribbling. ENDOCRINOLOGIC: Denies polyuria, polydipsia, polyphagia or heat/cold intolerances. HEMATOLOGIC: Denies thrombophilia/previous clots, or coagulopathy/bleeding disorders. ONCOLOGIC: Denies personal history of malignancy. DERMATOLOGIC: Denies rashes or pruritus. PSYCHIATRIC: Denies any suicidal or homicidal ideation. Denies hallucinations. PHYSICAL EXAM GENERAL APPEARANCE: The patient is awake, alert, and oriented, in no acute cardiopulmonary distress. NEUROLOGICAL: Cranial nerves II-XII grossly intact. Motor is 5/5 in bilateral upper and lower extremities proximal to distal. No sensory deficits. HEENT: Face is symmetric. Pupils are equal and reactive. Extraocular movements are intact. NECK: Supple. No JVD. No thyromegaly. No submental, submandibular, pre- /postauricular, occipital or supraclavicular lymphadenopathy. CHEST: Normal chest expansion. No Telemetry. LUNGS: Absence of any rales, rhonchi or any wheezing. CARDIOVASCULAR: Regular. S1 and S2 normal. No appreciable rubs, murmurs or gallops. ABDOMEN: Soft, nontender, and nondistended. There is no rebound, voluntary guarding, or rigidity. : Deferred. No Gonzalez. EXTREMITIES: Non-edematous and not cyanotic. No clubbing. Good capillary refill. SKIN: No skin breakdown. Vital Signs (last 8hr) Date Time Temp Pulse Resp B/P (MAP) Pulse Ox O2 Delivery O2 Flow Rate FiO2 08/06/25 08:00 98 Room Air* 0 21 08/06/25 08:00 98.1 65 14 151/82 97 Room Air 08/06/25 07:00 64 14 152/87 96 Room Air 08/06/25 05:45 66 12 129/80 96 Room Air 08/06/25 05:30 69 10 119/59 97 Room Air 08/06/25 05:15 65 10 125/63 97 Room Air 08/06/25 05:00 65 12 138/76 95 Room Air 08/06/25 04:45 70 18 158/89 98 Room Air 08/06/25 04:30 63 13 156/83 95 Room Air 08/06/25 04:15 63 13 141/82 96 Room Air 08/06/25 04:00 98.8 66 13 145/80 96 Room Air 08/06/25 04:00 97 Room Air* 0 21 08/06/25 03:45 79 8 121/63 95 Room Air 08/06/25 03:30 73 6 113/61 96 Room Air 08/06/25 03:15 73 115/62 96 Room Air 08/06/25 03:00 67 14 142/78 97 Room Air 08/06/25 02:45 64 13 159/74 95 Room Air 08/06/25 02:30 64 16 142/82 96 Room Air LABS: Laboratory: Test 08/06/25 04:59 08/05/25 22:31 08/05/25 19:40 Range/Units White Blood Count 14.7 #H 4.8-10.8 K/uL Red Blood Count 4.80 4.50-6.20 MIL/uL Hemoglobin 15.4 14.0-18.0 g/dL Hematocrit 44.0 42-54 % Mean Corpuscular Volume 91.7 79-99 fL Mean Corpuscular Hemoglobin 32.1 27.0-33.0 pg Mean Corpuscular Hemoglobin Concent 35.0 32.0-36.0 g/dL Red Cell Distribution Width 12.5 11.0-15.5 % Platelet Count 298 130-400 K/uL Mean Platelet Volume 9.5 7.5-10.5 fL Immature Granulocyte % (Auto) 0.7 0-1 % Neutrophils (%) (Auto) 67.2 40.0-77.0 % Lymphocytes (%) (Auto) 20.5 L 21.0-51.0 % Monocytes (%) (Auto) 10.4 3.0-13.0 % Eosinophils (%) (Auto) 0.9 0.0-8.0 % Basophils (%) (Auto) 0.3 0.0-5.0 % Neutrophils # (Auto) 9.8 H 1.8-7.7 K/uL Lymphocytes # (Auto) 3.0 1.0-4.8 K/uL Monocytes # (Auto) 1.5 H 0.1-1.0 K/uL Eosinophils # (Auto) 0.13 0.00-0.70 K/uL Basophils # (Auto) 0.05 0.00-0.20 K/uL Absolute Immature Granulocyte (auto 0.10 0-1 K/uL Nucleated Red Blood Cells 0.0 0.0-0.19 % Sodium Level 134 L 136-145 mmol/L Potassium Level 4.1 3.5-5.1 mmol/L Chloride Level 99 L 101-111 mmol/L Carbon Dioxide Level 27 21-32 mmol/L Blood Urea Nitrogen 28 H 7-18 mg/dL Creatinine 1.7 H 0.5-1.3 mg/dL Glomerular Filtration Rate Calc 46 >90 mL/min Random Glucose 126 H 70-105 mg/dL Hemoglobin A1c 7.2 H 4.0-6.0 % Estimated Average Glucose (eAG) 160 H 70-126 mg/dL Total Calcium 8.9 8.5-10.1 mg/dL Phosphorus Level 5.6 H 2.5-4.9 mg/dL Magnesium Level 2.40 1.80-2.40 mg/dL B-Type Natriuretic Peptide 18 0-100 pg/mL Triglycerides Level 230 H 30-200 mg/dL Cholesterol Level 168 <200 mg/dL LDL Cholesterol 95 0-99 mg/dL HDL Cholesterol 40 29-71 mg/dL Influenza Type A Antigen Negative For Type A NEGATIVE Influenza Type B Antigen Negative For Type B NEGATIVE SARS-CoV-2 Antigen (Rapid) PRESUMPTIVE NEGATIVE NEGATIVE White Cell Morphology Comment See comments Prothrombin Time 10.7 9.6-11.6 SEC Prothromb Time International Ratio 1.01 0.85-1.15 Activated Partial Thromboplast Time 23.6 L 26.3-35.5 SEC Total Creatine Kinase 54 # 21-232 U/L Troponin I High Sensitivity 50 4-75 ng/L Current Medications Medications (Trade) Dose Ordered Sig/Lesley Route PRN Reason Start Time Stop Time Status Last Admin Dose Admin Amlodipine Besylate (NorvASC 5MG TAB) 5 mg DAILY PO 08/06/25 09:00 09/05/25 08:59 08/06/25 08:07 5 MG Aspirin (Aspirin 81mg Chew Tab) 81 mg DAILY PO 08/06/25 09:00 09/05/25 08:59 08/06/25 08:07 81 MG Atorvastatin Calcium (LIPItor 40MG) 40 mg HS PO 08/06/25 21:00 09/05/25 20:59 Dextrose (D50w) 50 ml AD PRN IV HYPOGLYCEMIA PROTOCOL 08/05/25 21:30 09/04/25 21:29 Eptifibatide 100 ml @ 10.175 mls/ hr AD IV 08/05/25 21:30 08/06/25 13:29 08/06/25 05:57 10.175 MLS/HR Famotidine (Pepcid 20mg Tab) 20 mg DAILY PO 08/06/25 09:00 09/05/25 08:59 08/06/25 08:07 20 MG Glucagon (Glucagon 1mg Kit) 1 mg AD PRN IM HYPOGLYCEMIA PROTOCOL 08/05/25 21:30 09/04/25 21:29 Heparin Sodium (Porcine) (HEParin 5,000 UNIT VIAL) *calculation based on ACTUAL B... AD PRN IV HEPARIN PROTOCOL 08/05/25 20:30 08/05/25 22:20 DC 08/05/25 20:02 5,000 UNIT Heparin Sodium/ Dextrose 250 ml @ 0 mls/hr Q6H IV 08/05/25 20:30 08/05/25 22:20 DC 08/05/25 20:11 10.48 MLS/HR Magnesium Sulfate 50 ml @ 0 mls/hr PROTOCOL PRN IV h 08/06/25 00:00 09/05/25 00:00 Nitroglycerin (Nitrostat) 0.4 mg AD PRN SL CHEST PAIN 08/05/25 20:00 09/04/25 19:59 08/05/25 19:56 0.4 MG Potassium Chloride 100 ml @ 100 mls/hr AD PRN IV POTASSIUM PROTOCOL 08/06/25 00:00 09/05/25 00:00 Potassium Chloride (K-Dur/Klor-Con 20meq) 20 meq AD PRN PO POTASSIUM PROTOCOL 08/06/25 00:00 09/05/25 00:00 Potassium Chloride (KCl 10% Elixir 20meq/15ml) 20 meq AD PRN PO POTASSIUM PROTOCOL 08/06/25 00:00 09/05/25 00:00 Prasugrel (Effient 10mg) 600 mg ONCE PO 08/05/25 20:00 08/05/25 20:02 DC Sodium Chloride 1,000 ml @ 100 mls/hr Q10H IV 08/05/25 21:30 08/06/25 03:29 DC 08/05/25 21:30 100 MLS/HR Ticagrelor (BRILinta) 90 mg BID PO 08/06/25 09:00 09/05/25 08:59 08/06/25 08:07 90 MG DIAGNOSTICS / RADIOLOGY: [ ] ASSESSMENT: [ ] PLAN: [ ] LORRAINE TSEWART MD Aug 06, 2025 10:23
--- NOTE | 2025-08-06 11:14 | NUR ---
DCP: HOME met with pt, pt's common law of 3yrs, Melba Sauer [phone], and pt's brother and sister. Discussed MPOA. Pt states he considers Melba his and she would be decision maker in even of ER not his 5 children. Encouraged pt to complete MPOA if this is his wishes. Pt no feeling up to it at this time. Pt lives with Melba in home owned by his daughter. Pt drives, is active, states he has never been sick or needed a PCP. Pt states he remains independent, drives, no DME or in home care services. DCP is home with Addendum: 08/06/25 at 1125 by GEN LONGO Amended: Links added.
--- NOTE | 2025-08-06 12:24 | PN ---
[facility] CARDIOLOGY PROGRESS NOTE Date Patient Seen: Aug 06, 2025 Time of Visit: 12:19 Interval History: [No events overnight the patient underwent coronary angiogram yesterday There was 30-40% ostial thombotic plaque (by IVUS) and 100% distal-apical thrombotic occlusion Status post successful IVUS guided aspiration thrombectomy of the distal LAD (penumbra catheter) with removal of thrombus burden ] Physical Examination: GENERAL: [No acute distress.] HEAD: [Normal with no signs of head trauma.] EYES: [PERRLA, EOMI, conjunctiva and sclera normal.] ENT: [Hearing grossly intact, normal oropharynx.] NECK: [Supple without JVD. There is no tenderness, lymphadenopathy, or masses. No thyromegaly. Normal carotid upstrokes without bruits.] LUNGS: [Clear breath sounds bilaterally. . No wheezes, or rhonchi.] HEART: [Normal rate and rhythm. Normal S1 and S2 without mumurs, gallop or rub.] VASC: [Peripheral pulses +2 bilaterally.] ABD: [Bowel sounds normal, soft, nontender, no masses, no organomegaly. No audible bruits.] : [Not examined] LYMPH: [No lymphadenopathy noted.] EXT: [No clubbing, cyanosis or edema.] SKIN: [No rashes or lesions noted.] NEURO: [Awake, alert, and oriented x3. No focal sensory or strength deficits noted.] Laboratory: [ ] Hematology Labs: Test 08/06/25 04:59 08/05/25 19:40 Range/Units White Blood Count 14.7 #H 4.8-10.8 K/uL Red Blood Count 4.80 4.50-6.20 MIL/uL Hemoglobin 15.4 14.0-18.0 g/dL Hematocrit 44.0 42-54 % Mean Corpuscular Volume 91.7 79-99 fL Mean Corpuscular Hemoglobin 32.1 27.0-33.0 pg Mean Corpuscular Hemoglobin Concent 35.0 32.0-36.0 g/dL Red Cell Distribution Width 12.5 11.0-15.5 % Platelet Count 298 130-400 K/uL Mean Platelet Volume 9.5 7.5-10.5 fL Immature Granulocyte % (Auto) 0.7 0-1 % Neutrophils (%) (Auto) 67.2 40.0-77.0 % Lymphocytes (%) (Auto) 20.5 L 21.0-51.0 % Monocytes (%) (Auto) 10.4 3.0-13.0 % Eosinophils (%) (Auto) 0.9 0.0-8.0 % Basophils (%) (Auto) 0.3 0.0-5.0 % Neutrophils # (Auto) 9.8 H 1.8-7.7 K/uL Lymphocytes # (Auto) 3.0 1.0-4.8 K/uL Monocytes # (Auto) 1.5 H 0.1-1.0 K/uL Eosinophils # (Auto) 0.13 0.00-0.70 K/uL Basophils # (Auto) 0.05 0.00-0.20 K/uL Absolute Immature Granulocyte (auto 0.10 0-1 K/uL Nucleated Red Blood Cells 0.0 0.0-0.19 % White Cell Morphology Comment See comments Chemistry Labs: Test 08/06/25 04:59 08/05/25 19:40 Range/Units Sodium Level 134 L 136-145 mmol/L Potassium Level 4.1 3.5-5.1 mmol/L Chloride Level 99 L 101-111 mmol/L Carbon Dioxide Level 27 21-32 mmol/L Blood Urea Nitrogen 28 H 7-18 mg/dL Creatinine 1.7 H 0.5-1.3 mg/dL Glomerular Filtration Rate Calc 46 >90 mL/min Random Glucose 126 H 70-105 mg/dL Hemoglobin A1c 7.2 H 4.0-6.0 % Estimated Average Glucose (eAG) 160 H 70-126 mg/dL Total Calcium 8.9 8.5-10.1 mg/dL Phosphorus Level 5.6 H 2.5-4.9 mg/dL Magnesium Level 2.40 1.80-2.40 mg/dL B-Type Natriuretic Peptide 18 0-100 pg/mL Triglycerides Level 230 H 30-200 mg/dL Cholesterol Level 168 <200 mg/dL LDL Cholesterol 95 0-99 mg/dL HDL Cholesterol 40 29-71 mg/dL Total Creatine Kinase 54 # 21-232 U/L Troponin I High Sensitivity 50 4-75 ng/L Coagulation Labs: Test 08/05/25 19:40 Range/Units Prothrombin Time 10.7 9.6-11.6 SEC Prothromb Time International Ratio 1.01 0.85-1.15 Activated Partial Thromboplast Time 23.6 L 26.3-35.5 SEC Diagnostics / Radiology: [Copy/Paste Echos/Imaging Report here] Impression and Plan: [Acute STEMI Hypertension Hyperlipidemia History of drug abuse ] Plan: [# Acute STEMI: Patient presenting with epigastric burning associated with nausea and vomiting while at work which initiated around 12:00 p.m. today Following emesis his symptoms resolve later that afternoon he began endorsing left-sided radiating chest pressure He presented to [facility] worse presenting ECG revealed inferior and anterolateral ST elevations Patient was given IV heparin bolus and infusion along with Brilinta 180 mg, aspirin 324, and Lipitor 40 mg q.h.s. On evaluation the bedside patient was hemodynamically stable stating his symptoms had resolved Following informed consent patient was taken to the manager laboratory emergently for coronary angiogram with possible PCI the patient underwent coronary angiogram yesterday There was 30-40% ostial thombotic plaque (by IVUS) and 100% distal-apical thrombotic occlusion Status post successful IVUS guided aspiration thrombectomy of the distal LAD (penumbra catheter) with removal of thrombus burden Aggressive risk factor modification. Patient required 12 months of dual antiplatelet therapy (aspirin 81 mg daily/ticagrelor 90 mg b.i.d.) in addition to high-intensity statin therapy We will defer the use of beta-blockers given recent cocaine use in initiate calcium channel blockers Please perform 2D echocardiogram to assess systolic and valvular function Radial arm precautions and postprocedural IV resuscitation with fluids We will continue IV Integrilin infusion at a constant rate for the next 16-18 hours ( should stop today at 16:00hrs ) Please keep patient on telemetry. Monitor/replace electrolytes as needed Thank you for this consult. Cardiology continued to follow along [ ] ATTESTATION BY PHYSICIAN I have seen and examined the patient, reviewed the above documentation, participated in medical decision making, made necessary modifications, and agree with the treatment plan as documented by my mid-level provider above. MD HERBERT Rubio JAMES R MD Aug 06, 2025 12:24
--- NOTE | 2025-08-06 14:14 | PN ---
[facility] PROGRESS NOTE Date of Service: Aug 06, 2025 Time of Service: 14:14 SUBJECTIVE: Patient is 55-year-old male with a past medical history of drug abuse, hypertension, hyperlipidemia who presented to [facility] endorsing acute onset of epigastric burning radiating to his left chest accompanied by nausea and vomiting. Patient stated his symptoms subsided after nausea vomiting and initiated around noon today. Patient states upon arrival to his house he began endorsing left-sided chest pressure radiating to his left arm accompanied by nausea and vomiting. Given his progressive symptoms he presented to [facility] ER where he was given sublingual nitro with improvement of his symptoms. His presenting ECG revealed inferior and anterolateral ST elevations and code STEMI was activated. Patient was started on ACS protocol including loading doses of Brilinta, IV heparin bolus and infusion, high-intensity statin therapy and was transferred to labels molder for urgent coronary angiogram with possible PCI. On evaluation in the ER patient was hemodynamically stable in no acute distress denying any further symptoms. There were no telemetry events and following informed consent the patient was taken to the labels molder. Family is present at bedside and all risk benefits were explained in great detail. Patient verbalized understanding and agreeable with plan of care. 08/06/25: Patient was seen and examined in room 216 without family present. Patient is stable with moderate chest pain post-procedure breathing comfortably on room air. Patient had a successful IVUS guided aspiration thrombectomy of the distal LAD (penumbra catheter) with removal of thrombus burden. Following the procedure the patient was placed on IV Integrilin infusion over the next 16- 18 hours. Patient was also recommended 12 months of dual antiplatelet therapy (aspirin 81 mg daily/ticagrelor 90 mg b.i.d.) in addition to high-intensity statin therapy. They also defer the use of beta-blockers given recent cocaine use and initiated calcium channel blockers. An echo has been ordered and performed but report isn't out yet. We will follow cardiology recommendation for further treatment. Patient today had a WBC count of 14.7 down from 21.2 yesterday, patient's chest x-ray was normal, a urinalysis has been ordered. Patient's lipid panel shows elevated triglycerides at 230, hemoglobin A1c at 7.2. Patient's creatinine is a bit elevated at 1.7. REVIEW OF SYSTEMS CONSTITUTIONAL: Denies fevers, chills, or night sweats. No unintentional weight loss reported. NEUROLOGICAL: Denies headache, motor weakness, sensory deficit, vertigo/spinning sensation, gait abnormalities, or tremors. ENT: No hearing loss, rhinitis, rhinorrhea, hoarseness, or sore throat. CARDIOVASCULAR: Chest pain, Denies any exertional angina, dyspnea on exertion, orthopnea, paroxysmal nocturnal dyspnea, palpitations PULMONARY: Denies any shortness of breath, cough, phlegm/sputum, hemoptysis, pleuritic chest pain. GASTROINTESTINAL: Denies any type of dysphagia to either liquids or solids. Denies nausea, vomiting, abdominal pain, diarrhea, constipation, or changes in stool consistency or caliber. GENITOURINARY: Denies frequency, urgency, nocturia, hematuria or incontinence. ENDOCRINOLOGIC: Denies polyuria, polydipsia, polyphagia or heat/cold intolerances. DERMATOLOGIC: Denies rashes or pruritus. PHYSICAL EXAM GENERAL APPEARANCE: The patient is awake, alert, and oriented NEUROLOGICAL: Cranial nerves II-XII grossly intact. No sensory deficits. HEENT: Face is symmetric. Pupils are equal and reactive. Extraocular movements are intact. NECK: Supple. No lymphadenopathy. CHEST: Normal chest expansion. On Telemetry. LUNGS: Absence of any rales, rhonchi or any wheezing. CARDIOVASCULAR: Regular. S1 and S2 normal. No appreciable rubs, murmurs or g allops. ABDOMEN: Soft, nontender, and nondistended. There is no rebound, voluntary guarding, or rigidity. : Deferred. No Gonzalez. EXTREMITIES: Non-edematous and not cyanotic. No clubbing. Good capillary refill. SKIN: No skin breakdown. Vital Signs (last 8hr) Date Time Temp Pulse Resp B/P (MAP) Pulse Ox O2 Delivery O2 Flow Rate FiO2 08/06/25 12:00 97.9 76 23 126/67 96 Room Air 08/06/25 12:00 96 Room Air* 0 21 08/06/25 11:00 74 22 149/75 96 Room Air 08/06/25 10:00 72 18 145/62 97 Room Air 08/06/25 09:00 69 20 135/98 96 Room Air 08/06/25 08:00 98 Room Air* 0 21 08/06/25 08:00 98.1 65 14 151/82 97 Room Air 08/06/25 07:00 64 14 152/87 96 Room Air LABS: Laboratory: Test 08/06/25 04:59 08/05/25 22:31 08/05/25 19:40 Range/Units White Blood Count 14.7 #H 4.8-10.8 K/uL Red Blood Count 4.80 4.50-6.20 MIL/uL Hemoglobin 15.4 14.0-18.0 g/dL Hematocrit 44.0 42-54 % Mean Corpuscular Volume 91.7 79-99 fL Mean Corpuscular Hemoglobin 32.1 27.0-33.0 pg Mean Corpuscular Hemoglobin Concent 35.0 32.0-36.0 g/dL Red Cell Distribution Width 12.5 11.0-15.5 % Platelet Count 298 130-400 K/uL Mean Platelet Volume 9.5 7.5-10.5 fL Immature Granulocyte % (Auto) 0.7 0-1 % Neutrophils (%) (Auto) 67.2 40.0-77.0 % Lymphocytes (%) (Auto) 20.5 L 21.0-51.0 % Monocytes (%) (Auto) 10.4 3.0-13.0 % Eosinophils (%) (Auto) 0.9 0.0-8.0 % Basophils (%) (Auto) 0.3 0.0-5.0 % Neutrophils # (Auto) 9.8 H 1.8-7.7 K/uL Lymphocytes # (Auto) 3.0 1.0-4.8 K/uL Monocytes # (Auto) 1.5 H 0.1-1.0 K/uL Eosinophils # (Auto) 0.13 0.00-0.70 K/uL Basophils # (Auto) 0.05 0.00-0.20 K/uL Absolute Immature Granulocyte (auto 0.10 0-1 K/uL Nucleated Red Blood Cells 0.0 0.0-0.19 % Sodium Level 134 L 136-145 mmol/L Potassium Level 4.1 3.5-5.1 mmol/L Chloride Level 99 L 101-111 mmol/L Carbon Dioxide Level 27 21-32 mmol/L Blood Urea Nitrogen 28 H 7-18 mg/dL Creatinine 1.7 H 0.5-1.3 mg/dL Glomerular Filtration Rate Calc 46 >90 mL/min Random Glucose 126 H 70-105 mg/dL Hemoglobin A1c 7.2 H 4.0-6.0 % Estimated Average Glucose (eAG) 160 H 70-126 mg/dL Total Calcium 8.9 8.5-10.1 mg/dL Phosphorus Level 5.6 H 2.5-4.9 mg/dL Magnesium Level 2.40 1.80-2.40 mg/dL B-Type Natriuretic Peptide 18 0-100 pg/mL Triglycerides Level 230 H 30-200 mg/dL Cholesterol Level 168 <200 mg/dL LDL Cholesterol 95 0-99 mg/dL HDL Cholesterol 40 29-71 mg/dL Influenza Type A Antigen Negative For Type A NEGATIVE Influenza Type B Antigen Negative For Type B NEGATIVE SARS-CoV-2 Antigen (Rapid) PRESUMPTIVE NEGATIVE NEGATIVE White Cell Morphology Comment See comments Prothrombin Time 10.7 9.6-11.6 SEC Prothromb Time International Ratio 1.01 0.85-1.15 Activated Partial Thromboplast Time 23.6 L 26.3-35.5 SEC Total Creatine Kinase 54 # 21-232 U/L Troponin I High Sensitivity 50 4-75 ng/L Current Medications Medications (Trade) Dose Ordered Sig/Lesley Route PRN Reason Start Time Stop Time Status Last Admin Dose Admin Amlodipine Besylate (NorvASC 5MG TAB) 5 mg DAILY PO 08/06/25 09:00 09/05/25 08:59 08/06/25 08:07 5 MG Aspirin (Aspirin 81mg Chew Tab) 81 mg DAILY PO 08/06/25 09:00 09/05/25 08:59 08/06/25 08:07 81 MG Atorvastatin Calcium (LIPItor 40MG) 40 mg HS PO 08/06/25 21:00 09/05/25 20:59 Dextrose (D50w) 50 ml AD PRN IV HYPOGLYCEMIA PROTOCOL 08/05/25 21:30 09/04/25 21:29 Eptifibatide 100 ml @ 10.175 mls/ hr AD IV 08/05/25 21:30 08/06/25 13:29 DC 08/06/25 13:03 10.175 MLS/HR Famotidine (Pepcid 20mg Tab) 20 mg DAILY PO 08/06/25 09:00 09/05/25 08:59 08/06/25 08:07 20 MG Glucagon (Glucagon 1mg Kit) 1 mg AD PRN IM HYPOGLYCEMIA PROTOCOL 08/05/25 21:30 09/04/25 21:29 Heparin Sodium (Porcine) (HEParin 5,000 UNIT VIAL) *calculation based on ACTUAL B... AD PRN IV HEPARIN PROTOCOL 08/05/25 20:30 08/05/25 22:20 DC 08/05/25 20:02 5,000 UNIT Heparin Sodium/ Dextrose 250 ml @ 0 mls/hr Q6H IV 08/05/25 20:30 08/05/25 22:20 DC 08/05/25 20:11 10.48 MLS/HR Magnesium Sulfate 50 ml @ 0 mls/hr PROTOCOL PRN IV h 08/06/25 00:00 09/05/25 00:00 Nitroglycerin (Nitrostat) 0.4 mg AD PRN SL CHEST PAIN 08/05/25 20:00 09/04/25 19:59 08/05/25 19:56 0.4 MG Potassium Chloride 100 ml @ 100 mls/hr AD PRN IV POTASSIUM PROTOCOL 08/06/25 00:00 09/05/25 00:00 Potassium Chloride (K-Dur/Klor-Con 20meq) 20 meq AD PRN PO POTASSIUM PROTOCOL 08/06/25 00:00 09/05/25 00:00 Potassium Chloride (KCl 10% Elixir 20meq/15ml) 20 meq AD PRN PO POTASSIUM PROTOCOL 08/06/25 00:00 09/05/25 00:00 Prasugrel (Effient 10mg) 600 mg ONCE PO 08/05/25 20:00 08/05/25 20:02 DC Sodium Chloride 1,000 ml @ 100 mls/hr Q10H IV 08/05/25 21:30 08/06/25 03:29 DC 08/05/25 21:30 100 MLS/HR Ticagrelor (BRILinta) 90 mg BID PO 08/06/25 09:00 09/05/25 08:59 08/06/25 08:07 90 MG DIAGNOSTICS / RADIOLOGY: [place] [address] [place] [id number] IMAGING REPORT Signed PATIENT: DO LUNA MR#: [id number] : 1970 SEX: M AGE: 55 LOCATION: 2CH ORDER STATUS: ADM IN [place] REPORT#: [id number] SERVICE REASON: post [facility] ORDERING PHYSICIAN: PIPER GODINEZ MD PROCEDURE: CXR1VW - CHEST 1VW CHEST 1VW REASON: post [facility] COMPARISON: Prior study from 08/05/2025 is available. FINDINGS: Single view of the chest was obtained. Lungs are clear. Heart size is normal. There is no pulmonary vascular congestion. Mediastinum and bony thorax appear unremarkable. IMPRESSION: 1. Unchanged from prior study with no acute cardiopulmonary process.. DICTATED BY: CLAUDETTE SPENCER MD DATE: 08/06/251634 ELECTRONICALLY SIGNED BY: CLAUDETTE SPENCER MD DATE: 08/06/251638 ASSESSMENT: STEMI, POA, Status post successful IVUS guided aspiration thrombectomy of the distal LAD (penumbra catheter) with the removal of thrombus burden, on 08/05/25 Leukocytosis, POA Hyponatremia NATHEN on CKD PLAN: STEMI, POA: * Status post successful IVUS guided aspiration thrombectomy of the distal LAD (penumbra catheter) with the removal of thrombus burden, on 08/05/25 * Patient required 12 months of dual antiplatelet therapy (aspirin 81 mg daily/ticagrelor 90 mg b.i.d.) in addition to high-intensity statin therapy * defer the use of beta-blockers given recent cocaine use and initiate calcium channel blockers * 2D echocardiogram to assess systolic and valvular function * continue IV Integrilin infusion at a constant rate for the next 16-18 hours ( should stop today at 16:00hrs ) Leukocytosis, POA: * Patient has a elevated WBC yesterday around 21.2 Which trended down to 14.7 today * Patient's chest x-ray is clear * Urinalysis ordered Hyponatremia: * Patient sodium is less than normal at 134 * We will Consider the following labs like urine osmolality, blood osmolality and urine sodium * Patient already on NS NATHEN on CKD * Patient came in with a creatinine level of 2.6 which has now decreased to 1.7 * Patient's GFR improved to 46 today from 28 yesterday * Patient on gentle hydration Patient on GI prophylaxis on famotidine 20 mg p.o. We will request labs in am Further orders to follow depending on above results ATTESTATION BY PHYSICIAN I have seen and examined the patient. I reviewed the documentation, medical decision making, and treatment plan as noted by the resident provider above. I agree with the findings and plan of care. ZEESHAN LAINEZ MD, ABHINAV MD Aug 06, 2025 14:14
--- NOTE | 2025-08-06 16:03 | NUR ---
Integrelin infusion discontinued at this time, patient tolerated infusion well with only mild bleeding to gums noted,(Dr. Rogelio Oliveira aware).
--- NOTE | 2025-08-06 16:39 | HMCIMG ---
CHEST 1VW REASON: post [facility] COMPARISON: Prior study from 08/05/2025 is available. FINDINGS: Single view of the chest was obtained. Lungs are clear. Heart size is normal. There is no pulmonary vascular congestion. Mediastinum and bony thorax appear unremarkable. IMPRESSION: 1. Unchanged from prior study with no acute cardiopulmonary process..
--- NOTE | 2025-08-06 18:51 | HMCSR ---
APPROVED REPORT EXAM: Two-dimensional and M-mode echocardiogram with Doppler and color Doppler. INDICATION ICD: Post left heart catherization 2D Dimensions RVDd3.2 cmLVEF(%)68.3 (>50%)LVED Vol(simp.)53.0 mL IVSd0.7 (0.7-1.1cm)FS(%)38 %LVES Vol(simp.)15.0 mL LVDd5.0 (3.8-5.6cm)LA (2D)3.1 (1.6-4.0cm)LVEF(%, simp.)72 % PWd0.7 (0.7-1.1cm)Ao Root(2D)3.5 (2.0-3.7cm)LA ESV INDEX (BP)16.96 mL/m2 IVSs1.0 cmLVOT diam2.2 (1.8-2.4cm) LVDs3.1 (2.5-4.0cm) PWs1.5 cm Deformation Strain Apical 4-19.7 % Apical 2-18.9 % Apical 3-15.3 % Global Strain-18.0 % M-Mode Dimensions EPSS1.2 cm LA (MM)3.4 (1.6-4.0cm) Ao Root(MM)3.7 (2.0-3.7cm) Aortic Valve AoV Vmax1.4 m/Jatinder Peak GR8.0 mmHgLVOT Vmax1.0 m/s AoV VTI0.3 mAo Mean GR4.1 mmHgLVOT VTI0.20 m SALO (VMAX)2.76 cm2AVA (VTI) 3.0 cm2 Mitral Valve MV E Vmax71.8 cm/sDECEL [id number] ms MV A Vmax77.1 cm/sP 1/2 T48 ms E/A ratio0.9MVA (PHT)4.6 cm2 TDI E/E' Nvptqm24.2E/E' Lateral6.5 Medial E' Peak V5.87 cm/sLateral E' Peak V11.11 cm/s Pulmonary Valve PV Vmax1.0 m/sPV VTI0.18 mPV Mean GR2.4 mmHg PV Peak GR3.9 mmHg Left Ventricle The left ventricle is normal sized. GLS -18.0% There is normal LV segmental wall motion. There is nor mal left ventricular wall thickness. The LVEF is > 70%. The left ventricular diastolic function is no rmal. Right Ventricle The right ventricle is normal size. The right ventricular systolic function is normal. Atria The left atrium is normal in size. The right atrium size is normal. Aortic Valve The aortic valve is normal in structure. Mild aortic regurgitation is present. There is no aortic aminta vular stenosis. Mitral Valve Mild mitral annular calcification. There is no mitral valve regurgitation noted. There is no mitral v alve stenosis. Tricuspid Valve The tricuspid valve is normal in structure. There is no tricuspid valve regurgitation noted. Pulmonic Valve The pulmonary valve is normal in structure. There is no pulmonic valvular regurgitation. Great Vessels The aortic root is normal in size. The IVC is normal in size and collapses >50% with inspiration. Pericardium There is no pericardial effusion. Other Information Quality : Adequate Conclusion The left atrium is normal in size. The left ventricle is normal sized. There is normal left ventricular wall thickness. GLS -18.0% There is normal LV segmental wall motion. The LVEF is > 70%. The left ventricular diastolic function is normal. Mild aortic regurgitation is present. Mild mitral annular calcification. There is no mitral valve stenosis. There is no mitral valve regurgitation noted. There is no pericardial effusion.
[2025-08-07] VITALS (9 sets, daily range): BP systolic 114–127; BP diastolic 58–80; PULSE 62–77; RESP 10–19; TEMP 97.6–98; O2SAT 96
[2025-08-07 04:45] LABS: IMMATURE GRANULOCYTE ABSOLUTE 0.09 K/uL (0-1); NUCLEATED RED BLOOD CELLS 0.0 % (0.0-0.19); PLATELET COUNT (AUTO) 255 K/uL (130-400); RED BLOOD CELL COUNT(AUTO) 4.68 MIL/uL (4.50-6.20); RED CELL DISTRIBUTION WIDTH 12.3 % (11.0-15.5); WHITE BLOOD COUNT (AUTO) 11.1 K/uL (4.8-10.8)
[2025-08-07 05:10] LABS: ASPARTATE AMINOTRANSFERASE 51.0 U/L (10-37); CREATININE 0.9 mg/dL (0.5-1.3); GLOMERULAR FILTR. RATE CALC 100.0 mL/min (>90); GLUCOSE,RANDOM 158.0 mg/dL (70-105); SODIUM SERUM 133.0 mmol/L (136-145); TOTAL PROTEIN, SERUM 6.6 g/dL (6.0-8.3); UREA NITROGEN, BLOOD 28.0 mg/dL (7-18)
[2025-08-07] MEDS: PoTASSium chloRIDE 20MEQ ER 20 MEQ ERTAB PO PRN (06:29)
[2025-08-07 08:02] LABS: APPEARANCE,URINE CLOUDY (CLEAR); GLUCOSE, URINE (UA) >=1000 mg/dL (NEGATIVE); LEUKOCYTE ESTERASE ,URINE 250 Leu/uL (NEGATIVE); NITRATE,URINE NEGATIVE (NEGATIVE); OCCULT BLOOD,URINE NEGATIVE (NEGATIVE)
[2025-08-07 08:25] LABS: ADD UA MICROSCOPIC YES
[2025-08-07 08:37] LABS: SQUAMOUS EPITHELIAL CELL,UR MOD /HPF (0-2)
--- NOTE | 2025-08-07 08:54 | PN ---
[facility] CARDIOLOGY PROGRESS NOTE Date Patient Seen: Aug 07, 2025 Time of Visit: 08:52 Interval History: [No events overnight . 2Decho showed LVEF > 65 % , no wall motion or valvular abnormalities, the patient denies any anginal symptoms or equivalents. Physical Examination: GENERAL: [No acute distress.] HEAD: [Normal with no signs of head trauma.] EYES: [PERRLA, EOMI, conjunctiva and sclera normal.] ENT: [Hearing grossly intact, normal oropharynx.] NECK: [Supple without JVD. There is no tenderness, lymphadenopathy, or masses. No thyromegaly. Normal carotid upstrokes without bruits.] LUNGS: [Clear breath sounds bilaterally. . No wheezes, or rhonchi.] HEART: [Normal rate and rhythm. Normal S1 and S2 without mumurs, gallop or rub.] VASC: [Peripheral pulses +2 bilaterally.] ABD: [Bowel sounds normal, soft, nontender, no masses, no organomegaly. No audible bruits.] : [Not examined] LYMPH: [No lymphadenopathy noted.] EXT: [No clubbing, cyanosis or edema.] SKIN: [No rashes or lesions noted.] NEURO: [Awake, alert, and oriented x3. No focal sensory or strength deficits noted.] Laboratory: [ ] Hematology Labs: Test 08/07/25 04:26 08/05/25 19:40 Range/Units White Blood Count 11.1 H 4.8-10.8 K/uL Red Blood Count 4.68 4.50-6.20 MIL/uL Hemoglobin 14.8 14.0-18.0 g/dL Hematocrit 43.3 42-54 % Mean Corpuscular Volume 92.5 79-99 fL Mean Corpuscular Hemoglobin 31.6 27.0-33.0 pg Mean Corpuscular Hemoglobin Concent 34.2 32.0-36.0 g/dL Red Cell Distribution Width 12.3 11.0-15.5 % Platelet Count 255 130-400 K/uL Mean Platelet Volume 9.5 7.5-10.5 fL Immature Granulocyte % (Auto) 0.8 0-1 % Neutrophils (%) (Auto) 58.9 40.0-77.0 % Lymphocytes (%) (Auto) 28.5 21.0-51.0 % Monocytes (%) (Auto) 8.9 3.0-13.0 % Eosinophils (%) (Auto) 2.4 0.0-8.0 % Basophils (%) (Auto) 0.5 0.0-5.0 % Neutrophils # (Auto) 6.5 1.8-7.7 K/uL Lymphocytes # (Auto) 3.2 1.0-4.8 K/uL Monocytes # (Auto) 1.0 0.1-1.0 K/uL Eosinophils # (Auto) 0.27 0.00-0.70 K/uL Basophils # (Auto) 0.05 0.00-0.20 K/uL Absolute Immature Granulocyte (auto 0.09 0-1 K/uL Nucleated Red Blood Cells 0.0 0.0-0.19 % White Cell Morphology Comment See comments Chemistry Labs: Test 08/07/25 04:26 08/06/25 04:59 08/05/25 19:40 Range/Units Sodium Level 133 L 136-145 mmol/L Potassium Level 3.6 3.5-5.1 mmol/L Chloride Level 100 L 101-111 mmol/L Carbon Dioxide Level 29 21-32 mmol/L Blood Urea Nitrogen 28 H 7-18 mg/dL Creatinine 0.9 0.5-1.3 mg/dL Glomerular Filtration Rate Calc 100 >90 mL/min Random Glucose 158 H 70-105 mg/dL Total Calcium 9.0 8.5-10.1 mg/dL Total Bilirubin 0.7 0.2-1.0 mg/dL Aspartate Amino Transf (AST/SGOT) 51 H 10-37 U/L Alanine Aminotransferase (ALT/SGPT) 27 12-78 U/L Alkaline Phosphatase 103 50-136 U/L Total Protein 6.6 6.0-8.3 g/dL Albumin 3.2 L 3.5-5.0 g/dL Hemoglobin A1c 7.2 H 4.0-6.0 % Estimated Average Glucose (eAG) 160 H 70-126 mg/dL Phosphorus Level 5.6 H 2.5-4.9 mg/dL Magnesium Level 2.40 1.80-2.40 mg/dL B-Type Natriuretic Peptide 18 0-100 pg/mL Triglycerides Level 230 H 30-200 mg/dL Cholesterol Level 168 <200 mg/dL LDL Cholesterol 95 0-99 mg/dL HDL Cholesterol 40 29-71 mg/dL Total Creatine Kinase 54 # 21-232 U/L Troponin I High Sensitivity 50 4-75 ng/L Coagulation Labs: Test 08/05/25 19:40 Range/Units Prothrombin Time 10.7 9.6-11.6 SEC Prothromb Time International Ratio 1.01 0.85-1.15 Activated Partial Thromboplast Time 23.6 L 26.3-35.5 SEC Diagnostics / Radiology: [Copy/Paste Echos/Imaging Report here] Impression and Plan: [Acute STEMI Hypertension Hyperlipidemia History of drug abuse ] Plan: [# Acute STEMI: Patient presenting with epigastric burning associated with nausea and vomiting while at work which initiated around 12:00 p.m. today Following emesis his symptoms resolve later that afternoon he began endorsing left-sided radiating chest pressure He presented to [facility] presenting ECG revealed inferior and anterolateral ST elevations Patient was given IV heparin bolus and infusion along with Brilinta 180 mg, aspirin 324, and Lipitor 40 mg q.h.s. On evaluation the bedside patient was hemodynamically stable stating his symptoms had resolved Following informed consent patient was taken to the laboratory specialist emergently for coronary angiogram with possible PCI the patient underwent coronary angiogram yesterday There was 30-40% ostial thombotic plaque (by IVUS) and 100% distal-apical thrombotic occlusion Status post successful IVUS guided aspiration thrombectomy of the distal LAD (p enumbra catheter) with removal of thrombus burden Aggressive risk factor modification. Patient required 12 months of dual antiplatelet therapy (aspirin 81 mg daily/ticagrelor 90 mg b.i.d.) in addition to high-intensity statin therapy We will defer the use of beta-blockers given recent cocaine use in initiate calcium channel blockers 2Decho showed LVEF > 65 % , no wall motion or valvular abnormalities, the patient denies any anginal symptoms or equivalents. Please keep patient on telemetry. Monitor/replace electrolytes as needed Thank you for this consult cardiology will sign off at this time the patient will follow up in clinic 1-2 weeks after discharge [ ] ATTESTATION BY PHYSICIAN I have seen and examined the patient, reviewed the above documentation, participated in medical decision making, made necessary modifications, and agree with the treatment plan as documented by my mid-level provider above. MD HERBERT Rubio JAMES R MD Aug 07, 2025 08:54
--- NOTE | 2025-08-07 11:50 | NUR ---
[facility] ICU Skin Assessment: Patient assessed by wound healing team. Patient with no wounds or skin breakdown noted. Assessment and recommendations provided to primary nurse. Education provided. Addendum: 08/07/25 at 1435 by ISAURO COSBY RN RN/ Amended: Links added.
[2025-08-07] MEDS ORDERED: ATOR40TA69 PO (12:23)
[2025-08-07] MEDS ORDERED: AMLO-257 PO (12:23)
[2025-08-07] MEDS ORDERED: AMOX1TAB16 PO (12:23)
[2025-08-07] MEDS ORDERED: TICA90TA PO (12:23)
[2025-08-07] MEDS ORDERED: ASPI-1005 PO (12:23)
--- NOTE | 2025-08-07 14:55 | DS ---
Discharge Summary Hospital Course Summary: Patient is 55-year-old male with a past medical history of drug abuse, hypertension, hyperlipidemia who presented to [facility] endorsing acute onset of epigastric burning radiating to his left chest accompanied by nausea and vomiting. Patient stated his symptoms subsided after nausea vomiting and initiated around noon today. Patient states upon arrival to his house he began endorsing left-sided chest pressure radiating to his left arm accompanied by nausea and vomiting. Given his progressive symptoms he presented to [facility] ER where he was given sublingual nitro with improvement of his symptoms. His presenting ECG revealed inferior and anterolateral ST elevations and code STEMI was activated. Patient was started on ACS protocol including loading doses of Brilinta, IV heparin bolus and infusion, high-intensity statin therapy and was transferred to test lab technician for urgent coronary angiogram with possible PCI. On e valuation in the ER patient was hemodynamically stable in no acute distress denying any further symptoms. There were no telemetry events and following informed consent the patient was taken to the test lab technician. Family is present at bedside and all risk benefits were explained in great detail. Patient verbalized understanding and agreeable with plan of care. Postprocedure patient was seen breathing comfortably on room air, stable. He underwent a successful IVUS guided aspiration thrombectomy of the distal LAD (penumbra catheter) with removal of thrombus burden. Following the procedure the patient was placed on IV Integrilin infusion over the next 16-18 hours. Patient was also recommended 12 months of dual antiplatelet therapy (aspirin 81 mg daily/ticagrelor 90 mg b.i.d.) in addition to high-intensity statin therapy. They also defer the use of beta-blockers given recent cocaine use and initiated calcium channel blockers. An echo has been ordered which showed the LVEF is > 70% with mild aortic regurgitation and normal left ventricular diastolic function. Patient today had a WBC count of 14.7 down from 21.2 yesterday, patient's chest x-ray was normal, a urinalysis has been ordered. The urinalysis came back positive for UTI so the urine was sent for culture. Today the patient appears much better and the patient was able to ambulate using PT's help. Cardiology saw him today and decided that he could be discharged with a follow up in clinic 1-2 weeks after discharge. Patient's lipid panel did show elevated triglycerides at 230 but patient is already on atorvastatin 40 mg, patient also has a hemoglobin A1c at 7.2. Patient's creatinine improved to 0.9. At this point we are discharging the patient on the medication that cardiology recommended along with Augmentin for his UTI, dietary modifications and follow up with PCP regarding his hemoglobin A1c. Hardening Machine Operator(s): Cardiology - Steff hayes MD - performed IVUS guided aspiration thrombectomy of the distal LAD (penumbra catheter) with removal of thrombus burden. Patient required 12 months of dual antiplatelet therapy (aspirin 81 mg daily/ticagrelor 90 mg b.i.d.) in addition to high-intensity statin therapy. We will defer the use of beta-blockers given recent cocaine use in initiate calcium channel blockers Procedure(s): PROCEDURE NOTE Name: DO LUNA Acct: [id number] MR: [id number] : 1970 Admit Date: 08/05/25 PIPER HAYES MD [place] [address] [address] PROCEDURE REPORT DATE OF PROCEDURE: Aug 05, 2025 VINYL DIPPER: [ Piper hayes MD] PROCEDURE PERFORMED: Conscious sedation Ultrasound guided right radial artery access Selective left coronary artery angiogram Selective right coronary artery angiogram Left heart catheterization IVUS of the LAD and left main Status post successful IVUS guided aspiration thrombectomy of the distal LAD (penumbra catheter) with removal of thrombus burden TR band 13 fawn over right radial artery INDICATION: Abnormal stress test DESCRIPTION OF PROCEDURE: After informed consent was obtained, the patient was prepped and draped in the usual sterile fashion. A 6 [place] arterial sheath was inserted in the right radial artery using ultrasound guidance with first pass wall puncture. The arterial sheath was aspirated and flushed. A 6 [place] JL 3.5 was then advanced to the ascending aorta over an exchange length J-tip guidewire, was aspirated and flushed, and was used for selective coronary angiograms in multiple obliquities. A JR-4 was advanced in a similar fashion to the ascending aorta over the J-tipped guidewire and was used for selective right coronary angiograms in multiple oblique views with findings as outlined below. The JR-4 catheter advanced into the LV and pressures were obtained with a pull-back across the aortic valve. Following review of the angiographic images decision was made to intervene on patient's distal thrombotic [place]. [place] [address] [place] of IV heparin loading doses of ticagrelor along with IV heparin infusion. Given his significant thrombotic burden we initiated double bolus and infusion of Integrilin. We then advanced a six [place] XB three guide catheter over the wire which was used to select engage the left main coronary artery. We then advanced a Prowater down to the distal LAD and this was used to daughter the distal apical thrombotic burden. Given the distal thrombotic burden we proceeded with aspiration thrombectomy rather than DOCUMENT IMAGE TECHNICIAN to prevent further embolization, moreover there appeared to be 30-40% thrombotic plaque in the ostial LAD. We advanced a penumbra catheter over the wire and became several antegrade and retrograde passes with removal of significant clot burden the distal and apical LAD as well as ostial LAD. We performed IVUS imaging to further delineate lesion morphology and characteristics. We noted distal thrombotic burden and a 30-40% thrombotic plaque in the ostial LAD. At this time we noted improvement of his ST elevations we provided a total of 400 mcg of nicardipine intracoronary along with a bolus of Integrilin intracoronary. Following review of the final angiographic images and improvement of ST- elevation decision was made to terminate the procedure and provide IV Integrilin infusion over the next 16-18 hours. At this time all wires and catheters removed from the body and a A TR band was placed over right radial artery. Patient tolerated procedure well with no postprocedural complication was transferred to CCU in stable condition FLUOROSCOPY TIME: 9.8 min LEFT HEART HEMODYNAMICS: LVEDP 3 mm Hg and no gradient Ao CORONARY ANGIOGRAM: LEFT MAIN: Patent and 0% stenosis. Gives rise to LCx and LAD. LEFT ANTERIOR DESCENDING: Large vessel giving rise to two Diagonal branches. There is 30-40% ostial thombotic plaque (by IVUS) and 100% distal-apical thrombotic occlusion. Diagonal patent LEFT CIRCUMFLEX: Large and gives rise to two OM branches. Luminal irregularities RIGHT CORONARY ARTERY: Large, dominant vessel giving rise to PDA and PL branches. Luminal irregularities HEMOSTASIS: TR band 12 fawn over right radial artery INTERVENTIONS: Status post successful IVUS guided aspiration thrombectomy of the distal LAD (penumbra catheter) with removal of thrombus burden COMPLICATIONS: None FINDINGS: Normal coronary anatomy and 100% distal thrombotic occlusion of the LAD status post successful aspiration thrombectomy ESTIMATED BLOOD LOSS: 5 cc RECOMMENDATIONS/INSTRUCTIONS: Aggressive risk factor modification. Patient required 12 months of dual antiplatelet therapy (aspirin 81 mg daily/ticagrelor 90 mg b.i.d.) in addition to high-intensity statin therapy We will defer the use of beta-blockers given recent cocaine use in initiate calcium channel blockers Please perform 2D echocardiogram to assess systolic and valvular function Radial arm precautions and postprocedural IV resuscitation with fluids We will continue IV Integrilin infusion at a constant rate for the next 16-18 hours CONTRAST DELIVERED TO PATIENT (mL): 200cc PIPER Gilbert MD, MD Aug 05, 2025 21:38 Electronically Signed by: PIPER HAYES MD08/05/252137 Electronically Co-Signed by: [address] [address] IMAGING REPORT Signed PATIENT: DO LUNA MR#: [id number] : 1970 SEX: M AGE: 55 LOCATION: [facility] ORDER 37 STATUS: ADM IN REPORT#: [id number] SERVICE 36 REASON: CHEST PAIN ORDERING PHYSICIAN: REX CASANOVA MD PROCEDURE: CXR1VW - CHEST 1VW EXAM: CR Chest, single view. CLINICAL HISTORY: Chest pain. COMPARISON: None. FINDINGS: The lungs show no infiltrate or other acute findings. No pleural effusion or pneumothorax. The cardiomediastinal silhouette is within normal limits. No acute osseous abnormality. IMPRESSION: No acute cardiopulmonary pathology is evident. /[place] DICTATED BY: MARSHAL ARRIETA Jr., MD DATE: 08/05/252228 ELECTRONICALLY SIGNED BY: MARSHAL ARRIETA Jr., MD DATE: 08/05/252228 [place] [address] [address] IMAGING REPORT Signed PATIENT: DO LUNA MR#: [id number] : 1970 SEX: M AGE: 55 LOCATION: [facility] ORDER 1 STATUS: ADM IN [facility] REPORT#: [id number] SERVICE REASON: post [facility] ORDERING PHYSICIAN: PIPER HAYES MD PROCEDURE: CXR1VW - CHEST 1VW CHEST 1VW REASON: post [facility] COMPARISON: Prior study from 08/05/2025 is available. FINDINGS: Single view of the chest was obtained. Lungs are clear. Heart size is normal. There is no pulmonary vascular congestion. Mediastinum and bony thorax appear unremarkable. IMPRESSION: 1. Unchanged from prior study with no acute cardiopulmonary process.. DICTATED BY: CLAUDETTE SPENCER MD DATE: 08/06/251634 ELECTRONICALLY SIGNED BY: CLAUDETTE SPENCER MD DATE: 08/06/251638 [place] [address] IMAGING REPORT Signed PATIENT: DO LUNA MR#: [id number] : 1970 SEX: M AGE: 55 LOCATION: [facility] ORDER 1 STATUS: ADM IN REPORT#: [id number] SERVICE 8 REASON: post [facility] ORDERING PHYSICIAN: PIPER HAYES MD PROCEDURE: ECHO CMP - ECHO 2-D COMPLETE APPROVED REPORT EXAM: Two-dimensional and M-mode echocardiogram with Doppler and color Doppler. INDICATION ICD: Post left heart catherization 2D Dimensions RVDd 3.2 cm LVEF(%) 68.3 (>50%) LVED Vol(simp.) 53.0 mL IVSd 0.7 (0.7-1.1cm) FS(%) 38 % LVES Vol(simp.) 15.0 mL LVDd 5.0 (3.8-5.6cm) LA (2D) 3.1 (1.6-4.0cm) LVEF(%, simp.) 72 % PWd 0.7 (0.7-1.1cm) Ao Root(2D) 3.5 (2.0-3.7cm) LA ESV INDEX (BP) 16.96 mL/m2 IVSs 1.0 cm LVOT diam 2.2 (1.8-2.4cm) LVDs 3.1 (2.5-4.0cm) PWs 1.5 cm Deformation Strain Apical 4 -19.7 % Apical 2 -18.9 % Apical 3 -15.3 % Global Strain -18.0 % M-Mode Dimensions EPSS 1.2 cm LA (MM) 3.4 (1.6-4.0cm) Ao Root(MM) 3.7 (2.0-3.7cm) Aortic Valve AoV Vmax 1.4 m/s Ao Peak GR 8.0 mmHg LVOT Vmax 1.0 m/s AoV VTI 0.3 m Ao Mean GR 4.1 mmHg LVOT VTI 0.20 m SALO (VMAX) 2.76 cm2 SALO (VTI) 3.0 cm2 Mitral Valve MV E Vmax 71.8 cm/s DECEL Time 238 ms MV A Vmax 77.1 cm/s P 1/2 T 48 ms E/A ratio 0.9 MVA (PHT) 4.6 cm2 TDI E/E' Medial 12.2 E/E' Lateral 6.5 Medial E' Peak V 5.87 cm/s Lateral E' Peak V 11.11 cm/s Pulmonary Valve PV Vmax 1.0 m/s PV VTI 0.18 m PV Mean GR 2.4 mmHg PV Peak GR 3.9 mmHg Left Ventricle The left ventricle is normal sized. GLS -18.0% There is normal LV segmental wall motion. There is normal left ventricular wall thickness. The LVEF is > 70%. The left ventricular diastolic function is normal. Right Ventricle The right ventricle is normal size. The right ventricular systolic function is normal. Atria The left atrium is normal in size. The right atrium size is normal. Aortic Valve The aortic valve is normal in structure. Mild aortic regurgitation is present. There is no aortic valvular stenosis. Mitral Valve Mild mitral annular calcification. There is no mitral valve regurgitation noted. There is no mitral valve stenosis. Tricuspid Valve The tricuspid valve is normal in structure. There is no tricuspid valve regurgitation noted. Pulmonic Valve The pulmonary valve is normal in structure. There is no pulmonic valvular regurgitation. Great Vessels The aortic root is normal in size. The IVC is normal in size and collapses >50% with inspiration. Pericardium There is no pericardial effusion. Other Information Quality : Adequate Conclusion The left atrium is normal in size. The left ventricle is normal sized. There is normal left ventricular wall thickness. GLS -18.0% There is normal LV segmental wall motion. The LVEF is > 70%. The left ventricular diastolic function is normal. Mild aortic regurgitation is present. Mild mitral annular calcification. There is no mitral valve stenosis. There is no mitral valve regurgitation noted. There is no pericardial effusion. DICTATED BY: RICO NAPIER MD DATE: 08/06/25 0897 ELECTRONICALLY SIGNED BY: RICO NAPIER MD DATE: 08/06/25 4866 Assessment/Plan: ASSESSMENT: STEMI, POA, Status post successful IVUS guided aspiration thrombectomy of the distal LAD (penumbra catheter) with the removal of thrombus burden, on 08/05/25 Leukocytosis, POA Hyponatremia NATHEN on CKD PLAN: Admission Date: 08/05/25 Discharge Date: 08/07/25 Disposition: Home Condition: Stable Activity: As tolerated Home medications: Continued Discharge medications: dual antiplatelet therapy (aspirin 81 mg daily/ticagrelor 90 mg b.i.d.), Atorvastatin 40 mg, Amlodipine 5 mg, Augmentin 875 mg-125mg Follow-up appointment: Follow up with PCP within 2-3 days of discharge Follow up with technical sales representative within 2 weeks of discharge We reinforced the importance of medication adherence and follow-up appointments. Discharge Instructions: Avoid heavy lifting (> 10 lb) vigorous exercise, or straining for 1 week You may walk and do light activities as tolerated Continue blood thinners as prescribed Take all other heart medications as directed Take all prescribed antibiotics exactly as directed, until finished, even if feeling better Make sure to discuss about diabetes mellitus with your PCP Call 911 or go to ER if you develop fever, severe abdominal pain or bloating, nausea or vomiting that does not improve, sudden shortness of breath or chest pain. Follow up with PCP within 2-3 days of discharge Follow up with Cardiology within 2 weeks of discharge Home Medications: Active Scripts Ticagrelor (Brilinta) 90 Mg Tablet, 1 TAB PO BID for 30 Days, #60 TAB 0 Refills Prov:KELLEY BURT MD 08/07/25 Atorvastatin Calcium (LIPITOR) 40 Mg Tablet, 1 TAB PO HS for 30 Days, #30 TAB 0 Refills Prov:KELLEY BURT MD 08/07/25 Aspirin (ASPIRIN 81MG CHEW TAB) 81 Mg Tab.chew, 1 TAB PO DAILY for 30 Days, #30 TAB 0 Refills Prov:KELLEY BURT MD 08/07/25 Amlodipine Besylate (Amlodipine Besylate) 5 Mg Tablet, 1 TAB PO DAILY for 30 Days, #30 TAB 0 Refills Prov:KELLEY BURT MD 08/07/25 Amoxicillin/Potassium Clav (Amox Tr-K Clv 875-125 mg Tab) 875 Mg-125 Mg Tablet, 1 TAB PO BID for 7 Days, #14 TAB 0 Refills Prov:KELLEY BURT MD 08/07/25 Discontinued Scripts Amoxicillin (Amoxicillin) 400 Mg/5 Ml Susp.recon, 12 ML PO BID for 10 Days, #250 ML Prov:SHEN SALAZAR 01/30/24 Prednisone (Prednisone) 20 Mg Tablet, 1 TAB PO AD for 6 Days, #14 TAB 0 Refills TAKE 1 TAB BY MOUTH THREE TIMES PER DAY X3 DAYS, THEN TAKE 1 TAB BY MOUTH TWICE A DAY X2 DAYS, THEN TAKE 1 TAB BY MOUTH ONCE A DAY X1 DAY. Prov:SHEN SALAZAR 01/30/24 New Medications: Amlodipine Besylate (Amlodipine Besylate) 5 Mg Tablet 1 TAB PO DAILY for 30 Days, #30 TAB 0 Refills Amoxicillin/Potassium Clav (Amox Tr-K Clv 875-125 mg Tab) 875 Mg-125 Mg Tablet 1 TAB PO BID for 7 Days, #14 TAB 0 Refills Aspirin (Aspirin 81MG Chew Tab) 81 Mg Tab.chew 1 TAB PO DAILY for 30 Days, #30 TAB 0 Refills Atorvastatin Calcium (Lipitor) 40 Mg Tablet 1 TAB PO HS for 30 Days, #30 TAB 0 Refills Ticagrelor (Brilinta) 90 Mg Tablet 1 TAB PO BID for 30 Days, #60 TAB 0 Refills Time spent arranging discharge: 31-60 minutes ATTESTATION BY PHYSICIAN I have seen and examined the patient. I reviewed the documentation, medical decision making, and treatment plan as noted by the resident provider above. I agree with the findings and plan of care. ZEESHAN LAINEZ MD, ABHINAV MD Aug 07, 2025 14:55
--- NOTE | 2025-08-07 16:25 | NUR ---
Patient was discharged by wheelchair to go down in no distress noted. DC instructions have been given and verbailized understanding.
== END 2025-08-07 16:30 | disposition home or self-care (01) | DRG 251 ==
LOC: EDH 19:25 → EDHIP 19:26 → 2CH 19:27
PROVIDERS: ADMIT Internal Medicine; ATTEND Internal Medicine
PROC: 4A023N7 Measurement of Cardiac Sampling and Pressure, Left Heart, Percutaneous Approach (ICD-10-PCS; principal; 2025-08-05)
PROC: 02C03ZZ Extirpation of Matter from Coronary Artery, One Artery, Percutaneous Approach (ICD-10-PCS; 2025-08-05)
PROC: B2111ZZ Fluoroscopy of Multiple Coronary Arteries using Low Osmolar Contrast (ICD-10-PCS; 2025-08-05)
PROC: B241ZZ3 Ultrasonography of Multiple Coronary Arteries, Intravascular (ICD-10-PCS; 2025-08-05)
DX: I21.3 ST elevation (STEMI) myocardial infarction of unspecified site (principal); E87.1 Hypo-osmolality and hyponatremia; N17.9 Acute kidney failure, unspecified; N39.0 Urinary tract infection, site not specified; I25.10 Atherosclerotic heart disease of native coronary artery without angina pectoris; J45.909 Unspecified asthma, uncomplicated; E78.1 Pure hyperglyceridemia; I12.9 Hypertensive chronic kidney disease with stage 1 through stage 4 chronic kidney disease, or unspecified chronic kidney disease; N18.9 Chronic kidney disease, unspecified; Z51.5 Encounter for palliative care; Z79.02 Long term (current) use of antithrombotics/antiplatelets; Z79.82 Long term (current) use of aspirin; Z99.81 Dependence on supplemental oxygen; I25.2 Old myocardial infarction
CPT/HCPCS: 36415; 71045; 80048; 80053; 80061; 81001; 82550; 83036; 83735; 83880; 84100; 84484; 85025; 85610; 85730; 86850; 86900; 86901; 87086; 87426; 87804; 92973; 92978; 92979; 93005; 93306; 93356; 93458; 99156; 99157; C1769; C1887; G0378; J1327; J1644; J2250; J3010; J3490; Q9967; A4649; C1753; C1894; Q9965